=== PATIENT | male | born 1970 | race Caucasian/White ===

== ENCOUNTER → 2018-06-17 12:19 | Outpatient (CLI) | payer OTHER, SELFPAY ==
--- NOTE | 2018-06-17 12:22 | RAD_ITS ---
STUDY: X-RAY - RIGHT SHOULDER REASON FOR EXAM: Male, 47 years old. Painful shoulder. TECHNIQUE: 4 view(s) of the shoulder. COMPARISON: None. FINDINGS: Normal glenohumeral articulation. Normal acromioclavicular joint. Normal acromion. Normal humeral head and visualized proximal humerus. There is periarticular soft tissue calcification consistent with a calcific tendinitis. Normal visualized pulmonary apex. RAD/Shoulder min 2 Views IMPRESSION: Findings in keeping with calcific tendinitis. Electronically Signed: Deion Delcid MD at 9:02 EDT Tel [phone], Service support ,
== END ==
PROVIDERS: Family Provider Preventive Medicine Occupational Medicine; PCP Preventive Medicine Occupational Medicine; Referring Provider Physician Assistant; Visit Provider Physician Assistant
DX: S46.911A Strain of unspecified muscle, fascia and tendon at shoulder and upper arm level, right arm, initial encounter (principal)
CPT/HCPCS: 73030

== ENCOUNTER → 2018-06-23 06:30 | Outpatient (CLI) | payer OTHER, SELFPAY ==
--- NOTE | 2018-06-23 06:36 | MRI_ITS ---
STUDY: MRI RIGHT SHOULDER REASON FOR EXAM: Anterior pain and limited range of motion, injury 06/13/2018. TECHNIQUE: Standardized fat and water weighted pulse sequences were obtained in all 3 orthogonal planes. COMPARISON: Radiographs 06/17/2018. FINDINGS: There are signal voids with adjacent inflammation in the supraspinatus tendon (T2 coronal images 10, 16) consistent with calcific tendinitis. There is no discrete tear of the supraspinatus tendon. Normal infraspinatus tendon. Normal subscapularis tendon. Normal teres minor tendon. Normal supraspinatus muscle. Normal infraspinatus muscle. Normal subscapularis muscle. Normal teres minor muscle. Normal glenohumeral articulation. There is mild cystic change of the posterior aspect of the greater tuberosity. Normal biceps labral complex. Normal intracapsular long biceps tendon. Normal labrum. Normal capsulo- ligamentous complex. There is acromioclavicular arthrosis with capsular thickening effacing the subacromial fat (T2 sagittal image 16). There is a Type II morphology (curved), with a neutral orientation. There is a small volume of subacromial-subdeltoid bursal fluid. There is thickening of the coracoacromial ligament (T2 sagittal image 13). Normal deltoid muscle. Normal trapezius muscle. MRI/Upper Ext Joint Only(Routine) IMPRESSION: Supraspinatus calcific tendinitis. Acromioclavicular arthrosis. Thickening of the coracoacromial ligament. Mild subacromial-subdeltoid bursitis. No demonstrated rotator cuff tear. Electronically Signed: Trey Navarro MD at 8:33 EDT Tel , Service support ,
== END ==
PROVIDERS: Family Provider Preventive Medicine Occupational Medicine; PCP Preventive Medicine Occupational Medicine; Referring Provider Physician Assistant; Visit Provider Physician Assistant
DX: S46.911A Strain of unspecified muscle, fascia and tendon at shoulder and upper arm level, right arm, initial encounter (principal); S46.011A Strain of muscle(s) and tendon(s) of the rotator cuff of right shoulder, initial encounter
CPT/HCPCS: 73221

== ENCOUNTER 2018-07-06 16:00 | Outpatient (RCR) | payer OTHER, SELFPAY ==
--- NOTE | 2018-06-30 11:21 | HP.PTEVAL ---
Patient's Visit Information LINDA PLATT is a 47 year old M referred to Physical Therapy by HE Rubio with a diagnosis of Strain of Right rotator cuff. Date of Evaluation: 06/26/18 Physical Therapist: Glen Alvarez - Visit Plan Frequency: 3x /Week Duration: 4 Weeks Plan: Start with IFC + ice to reduce symptoms. Focus on PROM/AAROM of R shoulder including brooke and wand exercises. Progress to scapuar stability/strengthening exercises as pain reduces to get back to work related activities. - Subjective Subjective: Pt. is here today for his initial evaluation of his R shoulder. Pt. reports hurting his shoulder while at work on Jun 12. He was stepping down a step and slipped while attempting to catch his self with his arm. Pt. reports having instant pain. He reports his symptoms have improved since initial injury. 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 He reports he was not able to lift his arm right after, but now is able to lift it to about shoulder height. He is currently on light duty, but is able to complete most activities. He did have an MRI showing no tear of his RTC. He is sleeping better, but continues to have increased pain limiting over head activites, upper body dressing, work activities and all recreational activties. Pt. is hopeful to increase ROM and strength allowing for return to all work and recreational activities without limitations. - Pain R shoulder Pain Intensity (Out of 10): 3 Pain Intensity Range: 2, 6 - Objective POSTURE: Pt. has rounded shoulder, normal R UE positioning, normal cervical spine positoning. PALPATION: Pt. has increased tenderness along subacromial space, along bicipital groove. No UT or scapular pain. NEURO: normal senation, normal DTR of bilateral UEs, biceps and triceps. ROM: L shoulder- full ROM without increase in symptoms. R shoulder- AROM- flexion 92deg, abd 87deg, ext 50deg, functional ER C1 abherrant motion, functional IR L1 mild increase NW. PROM- flexion 165deg increase NW, abd 145deg increase NW, ER at 0deg of abd 40 increase NE, IR at 30deg of abd 50deg increase NW. MMT: LUE- wrist/elbow 5/5 throughout. shoulder- 5/5 throughout. RUE- wrist/elbow 5/5 throughout. Shoulder- flexion 4/5 increase NW, abd 4/5 increase NW, ER 4/5 increase NW, IR 4/5 increase NW, ext 5/5 NE. Medical Reception Specialist strength- 58# R, 66# L, R hand dominant. - Special Tests R Shoulder External Rotation Lag Test - RC Tear: Negative R Shoulder Drop Sign - IS Test: Negative R Shoulder Empty Can - SS: Positive R Shoulder Belly Press - SupScap: Negative R Shoulder Neer - Impingement: Positive R Shoulder Jordan Tom - Impingement: Positive R Shoulder Biceps Load Test - Labrum: Negative R Shoulder Speeds Test - Labrum/Biceps: Negative - Goals Goal 1:: Pt. to be I with HEP. Goal Time Frame: 4-6 Weeks Goal 2:: Pt. to have full PROM and AROM of R shoulder without increase in symptoms. Goal Time Frame: 4-6 Weeks Goal 3:: Pt. to have no pain at rest. Goal Time Frame: 4-6 Weeks Goal 4:: Pt. to sleep throughout the night without increase in symptoms. Goal Time Frame: 4-6 Weeks Goal 5:: Pt. to resume all work related activities without increase in symptoms. - Rehabilitation Potential Physical Therapy Diagnosis: Pt. has signs and symptoms consistent with a strain of his R RTC. Pt. has had an MRI showing no tearing or acute pathology. Pt. has limited ROM secondary to increase pain with rotational movements and with all over head movements. Pt. also presents with increased weakness, but secondary to increased pain. Pt. would benefit from PT to increase ROM, strength, and progress back to all work and recreational activities. Rehabilitation Potential: Excellent - Anticipated Interventions Patient/Client Instruction: Educate patient on: Condition, Plan of Care, Risk Factors, Benefits of Fitness Program For the Purpose of:: To improve health and function, To foster healthy habits, To improve decision making, To facilitate caregiver knowledge, To improve self management, To prevent re-injury, To improve ability to perform tasks related to life management, To improve tolerance to ADL's Therapeutic Exercise to Include: Strength training, Body mechanics, Postural training, Passive ROM, Active ROM, Kam Exercises, Scapular Strength/Stabilization For the Purpose of:: To decrease pain, To decrease swelling/inflammation, To increase ROM, To improve muscle performance and motor function, To decrease soft tissue restriction, To increase flexibility/ROM, To prevent re-injury Manual Therapy Techniques to Include: Mobilization, Soft tissue mobilization For the Purpose of:: To decrease pain, To increase ROM, To improve health of tissue, To decrease soft tissue restriction, To increase flexibility/ROM TENS: Yes IF ES: Yes Cryotherapy (ice pack, ice massage): Yes For the Purpose of:: To decrease pain, To decrease swelling/inflammation, To increase ROM, To improve nutrient delivery to tissue Thank you for the opportunity to evaluate your patient. For Medicare and Medicare HMO plans, please review the plan of care and approve it. It will need to be FAXED BACK to us at [phone] for Medicare purposes. Please let me know if there are questions or concerns regarding this plan of care. Physician Signature: Date:
--- NOTE | 2018-12-04 10:01 | HP.PT.NRP ---
HP - Discharge Summary (1) - Patient Information LINDA PLATT was seen in my office for initial evaluation on 06/26/18. The following Plan of Care was established for this patient: Initial Frequency: 3x /Week Initial Duration: 4 Weeks - Anticipated Interventions Patient/Client Instruction: Educate patient on: Condition, Plan of Care, Risk Factors, Benefits of Fitness Program For the Purpose of:: To improve health and function, To foster healthy habits, To improve decision making, To facilitate caregiver knowledge, To improve self management, To prevent re-injury, To improve ability to perform tasks related to life management, To improve tolerance to ADL's Therapeutic Exercise to Include: Strength training, Body mechanics, Postural training, Passive ROM, Active ROM, Kam Exercises, Scapular Strength/Stabilization For the Purpose of:: To decrease pain, To decrease swelling/inflammation, To increase ROM, To improve muscle performance and motor function, To decrease soft tissue restriction, To increase flexibility/ROM, To prevent re-injury Manual Therapy Techniques to Include: Mobilization, Soft tissue mobilization For the Purpose of:: To decrease pain, To increase ROM, To improve health of tissue, To decrease soft tissue restriction, To increase flexibility/ROM TENS: Yes IF ES: Yes Cryotherapy (ice pack, ice massage): Yes For the Purpose of:: To decrease pain, To decrease swelling/inflammation, To increase ROM, To improve nutrient delivery to tissue This patient was last seen in our office 07/06/18. Pertinent comments regarding their Physical therapy will appear below: Pt. was treated for his rotator cuff strain. Pt. did very well with shoulder stabilityu and strengthening exercises. Pt. was to follow up with physician then with PT if needed. Pt. has not been seen in several months and will be DC from PT at this point in time. At this point I will be discontinuing this patient from physical therapy. I would be happy to see this patient again in the future if found appropriate by the physician. Thank you! Glen Alvarez, MATHEUS
== END 2018-07-06 19:00 | disposition home or self-care (01) ==
LOC: PT 16:00
PROVIDERS: Family Provider Preventive Medicine Occupational Medicine; PCP Preventive Medicine Occupational Medicine; Referring Provider Physician Assistant; Visit Provider Physician Assistant
DX: S46.911D Strain of unspecified muscle, fascia and tendon at shoulder and upper arm level, right arm, subsequent encounter (principal); S46.011D Strain of muscle(s) and tendon(s) of the rotator cuff of right shoulder, subsequent encounter
CPT/HCPCS: 97014; 97110; 97161; G0283

== ENCOUNTER → 2019-09-28 15:41 | Outpatient (CLI) | payer OTHER, SELFPAY ==
[2019-09-28 14:28] VITALS: BMI 31.9
--- NOTE | 2019-09-28 15:44 | RAD_ITS ---
STUDY: X-RAY - LEFT SHOULDER REASON FOR EXAM: Male, 49 years old. left shoulder pain TECHNIQUE: 4 view(s) of the shoulder. COMPARISON: None. FINDINGS: Normal glenohumeral articulation. 3.0 x 2.2 cm well-circumscribed lobulated lucent lesion within the inferior glenoid. Normal acromioclavicular joint. Normal acromion. Normal humeral head and visualized proximal humerus. The soft tissue structures are unremarkable. Normal visualized pulmonary apex. RAD/Shoulder min 2 Views IMPRESSION: Nonaggressive osseous lesion within the inferior glenoid. Correlate with CT. Electronically Signed: Carlos Mo MD at 1:33 EST , Service support ,
== END ==
PROVIDERS: PCP Internal Medicine; Referring Provider Internal Medicine; Visit Provider Internal Medicine
DX: M25.512 Pain in left shoulder (principal)
CPT/HCPCS: 73030

== ENCOUNTER → 2019-10-04 13:20 | Outpatient (CLI) | payer OTHER, SELFPAY ==
[2019-09-28 14:28] VITALS: BMI 31.9
--- NOTE | 2019-10-04 13:21 | MRI_ITS ---
STUDY: MRI LEFT SHOULDER REASON FOR EXAM: Left shoulder pain, abnormal radiograph. TECHNIQUE: Standardized fat and water weighted pulse sequences were obtained in all 3 orthogonal planes. COMPARISON: Radiographs 09/28/2019. FINDINGS: Normal supraspinatus tendon. Normal infraspinatus tendon. Normal subscapularis tendon. Normal teres minor tendon. Normal supraspinatus muscle. Normal infraspinatus muscle. Normal subscapularis muscle. Normal teres minor muscle. There is a well-defined septated cyst in the glenoid extending to the subchondral surface (fat suppressed T2 coronal images 6-9; T2 sagittal images 3-8; T2 axial images 12-14) measuring 1.7 x 2.3 x 2.3 cm (AP x mediolateral x length). The lesion is not expansile and there is no adjacent bone edema. Normal humeral head and visualized proximal humerus. Normal biceps labral complex. Normal intracapsular long biceps tendon. Normal labrum. Normal capsulo- ligamentous complex. There is no substantial acromioclavicular arthrosis. There is a Type II morphology (curved), with a neutral orientation. There is no subacromial-subdeltoid bursal fluid. Normal visualized coracohumeral and coracoacromial ligaments. Normal deltoid muscle. Normal trapezius muscle. MRI/Upper Ext Joint Only(Routine) IMPRESSION: Nonaggressive cystic lesion in the glenoid, differential considerations include an intraosseous ganglion cyst, simple bone cyst. Electronically Signed: Trey Navarro MD at 14:35 EST Tel , Service support ,
== END ==
PROVIDERS: PCP Internal Medicine; Referring Provider Internal Medicine; Visit Provider Internal Medicine
DX: M25.512 Pain in left shoulder (principal); R93.6 Abnormal findings on diagnostic imaging of limbs
CPT/HCPCS: 73221

== ENCOUNTER → 2021-07-11 13:27 | Outpatient (CLI) | payer OTHER, SELFPAY ==
[2021-07-11 15:38] LABS: Thyroid Stim Hormone (TSH) 3.39 uIU/mL (0.358-3.74)
== END ==
PROVIDERS: PCP Internal Medicine; Referring Provider Internal Medicine; Visit Provider Internal Medicine
DX: E03.9 Hypothyroidism, unspecified (principal)
CPT/HCPCS: 36415; 84443

== ENCOUNTER 2021-10-12 09:33 | Day surgery (SDC) | payer OTHER, SELFPAY ==
[2021-10-12] MEDS: Lactated Ringers 1,000 ML 15 ML IV (10:00)
[2021-10-12 10:01] VITALS: BP 123/77; PULSE 70; RESP 18; TEMP 36.3; O2SAT 97; BMI 31.3
--- NOTE | 2021-10-12 11:02 | H&P.OPEN ---
HPI - General HPI Narrative LINDA PLATT, is a 51 M who presents for screening colonoscopy secondary to age. They are referred for surgical consultation from Dr. Hawkins. Patient has not had prior colonoscopy. Patient has no personal history of inflammatory bowel disease, diverticulitis, or colon cancer. They describe their bowel habits as normal and regularly occurring once daily without straining. They deny noting any blood or smaller caliber to their stools. They do not regularly take fiber supplements. Patient has no family history of inflammatory bowel disease, diverticulitis, or colon cancer. Patient states that he successfully completed the requested prep. He confirms that his output has been clear and without solid material. [facility] Medical History (Updated 09/25/21 @ 09:22 by Sylvia Calderón) Alcohol use Arthritis Back problem Bone fracture Chewing tobacco use Colon cancer screening COVID-19 Gastric reflux Generalized headaches GERD (gastroesophageal reflux disease) H/O tinnitus Arleth's disease Health care maintenance Hearing problem High cholesterol History of echocardiogram Hypertension Kidney stone Lab test negative for COVID-19 virus Migraine headache Restless legs Shoulder pain Thyroid disease Home Medications atorvastatin 20 mg tablet 20 mg PO DAILY 90 Days #90 tab 07/11/21 [Rx Last Taken Unknown] levothyroxine 150 mcg tablet 150 mcg PO DAILY 90 Days #90 tab 07/11/21 [Rx Last Taken Unknown] omeprazole 20 mg tablet,delayed release 20 mg PO DAILY 90 Days #84 tab 07/11/21 [Rx Last Taken Unknown] amlodipine 5 mg PO DAILY 09/25/21 [History Last Taken Unknown] Allergy/AdvReac Type Severity Reaction Status Date / Time Sulfa (Sulfonamide AdvReac Mild Rash Verified 09/25/21 09:12 Antibiotics) Family History Grandfather Alcoholism Angina at rest Grandmother Breast cancer Father High cholesterol Thyroid disorder Myocardial infarction Surgical History History of appendectomy Social History Smoking Status: Current every day smoker tobacco type: smokeless tobacco Tobacco: How many years used: 20 Smokeless tobacco user: chewing tobacco alcohol intake: current alcohol intake frequency: holidays/special occasions only substance use type: does not use what type of physical activity do you participate in: walking frequency: 1-2 times per week duration: 30-45 minutes/day Past Medical/Surgical History Planned Operation Planned Operative Procedure/s: CSCOPE OA Previous Hospitalizations/Surgeries HX Hospitalizations: No Any Problems With Anesthesia: No You/Your Family Experience Fever (Hyperthermia) With Anes: No Cholinesterase deficiency: No Cardiovascular Hx Hypertension: Yes (CONTROLLED WITH MED) Respiratory Hx Sleep Apnea: No Hx Respiratory Tract Infection/Cold (presently): No Do You Snore Loudly (louder than talking or can be heard): Yes Do You Often Feel Tired/ Fatigued/ Sleepy Dring Daytime?: No Has Anyone Observed You Stop Breathing During Sleep?: No Result (for STOP score): Positive Smoking Status: Current every day smoker Neurological Does patient have nerve stimulator: No Reproduction : No Miscellaneous Recent Exposure to Contagious Disease: No Allergies Sulfa (Sulfonamide Antibiotics) Adverse Reaction (Mild, Verified 09/25/21 09:12) Rash Discharge Is Pt Admitted From a Senior Care, or a Longterm: No After D/C, Where Do you Plan to Go: Return Home Vital Signs Vital Signs Vital Signs: 10/12/21 10:01 Temperature 97.4 F L Temperature Source Temporal Pulse Rate 70 Respiratory Rate 18 Respiratory Pattern Normal Blood Pressure 123/77 H Blood Pressure Mean 92 Blood Pressure Source Monitor Blood Pressure Position Sitting Blood Pressure Location Right Arm Pulse Ox 97 Oxygen Delivery Method Room Air Weight Weight: 218 lb 4.122 oz Body Mass Index (BMI) 31.3 Physical Exam GI GI Narrative: Nondistended, soft, no scars. Evidence of umbilical hernia on inspection. With palpation there is evidence of incarcerated fat. This is mildly tender to palpation. Otherwise patient denies any tenderness in the 4 abdominal quadrants. Surgery Risks - Colonoscopy Risks Include but are not Limited To: Risks include but are not limited to: Bleeding, perforation requiring further surgery, inability to complete colonoscopy requiring barium enema. Assessment & Plan Assessment & Plan (1) Colon cancer screening: Plan: This is a 51-year-old male who presents for screening colonoscopy. He provides no history to indicate anything more than an average risk for colon cancer. He confirms successful bowel prep. He denies any questions related to the procedure. Proceed for screening colonoscopy under local MAC as planned. (2) Health care maintenance: Plan: Screening colonoscopy under local [facility] as above
[2021-10-12 12:22] VITALS: BP 119/79; BP 123/77; PULSE 66; RESP 18; TEMP 36.2; O2SAT 97
--- NOTE | 2021-10-12 12:24 | OP.COLON_ITS ---
Patient Name: Roman Betts Procedure Date: 10/12/2021 11:02 AM Date of : 1970 Age: 51 Procedure: Colonoscopy Indications: Screening for colorectal malignant neoplasm Providers: Xu Blair MD Referring MD: Paul Hawkins MD Medicines: See the Anesthesia note for documentation of the administered medications Patient Profile: This is a 51 year old male. Refer to note in patient chart for documentation of history and physical. Last Colonoscopy: none. The patient's first colonoscopy is today. Complications: No immediate complications. Estimated blood loss: None. Procedure: Pre-Anesthesia Assessment: - The heart rate, respiratory rate, oxygen saturations, blood pressure, adequacy of pulmonary ventilation, and response to care were monitored throughout the procedure. After I obtained informed consent, the scope was passed under direct vision. Throughout the procedure, the patient's blood pressure, pulse, and oxygen saturations were monitored continuously. The adult colonoscope was introduced through the anus and advanced to the ileocecal valve. The colonoscopy was performed with moderate difficulty due to poor bowel prep. Successful completion of the procedure was aided by lavage. The patient tolerated the procedure well. The quality of the bowel preparation was poor. Scope In: 11:13:26 AM Scope Withdrawal Time 0 hours 41 minutes 50 seconds Scope Out: 12:15:06 PM Total Procedure Duration Time 1 hour 1 minute 40 seconds Findings: A single small-mouthed diverticulum was found in the transverse colon. There was no evidence of diverticular bleeding. No biopsies or other specimens were collected for this exam. The exam was otherwise without abnormality on direct and retroflexion views. Impression: - Preparation of the colon was poor. - Diverticulosis in the transverse colon. There was no evidence of diverticular bleeding. No specimens collected. - The examination was otherwise normal on direct and retroflexion views. Recommendation: - Discharge patient to home (via wheelchair). - Resume regular diet today. - Continue present medications. - Repeat colonoscopy in 5 years for screening purposes. Procedure Code(s): --- Professional --- 53705, Colonoscopy, flexible; diagnostic, including collection of specimen(s) by brushing or washing, when performed (separate procedure) Diagnosis Code(s): --- Professional --- Z12.11, Encounter for screening for malignant neoplasm of colon K57.30, Diverticulosis of large intestine without perforation or abscess without bleeding CPT copyright 2017 [employer]. All rights reserved. The codes documented in this report are preliminary and upon hopper feeder review may be revised to meet current compliance requirements. Xu Blair MD 10/12/2021 12:24:27 PM This report has been signed electronically. Number of Addenda: 0 Note Initiated On: 10/12/2021 11:02 AM
--- NOTE | 2021-10-12 12:25 | OP.CCLET_ITS ---
10/12/2021 Paul Hawkins MD [address] [place] [address] [place] [address] Re : Colonoscopy procedure for Roman Betts Dear Dr. Hawkins This procedure was performed on Tuesday, October 12, 2021. My impressions and recommendations are as follows: Impressions : - Preparation of the colon was poor. - Diverticulosis in the transverse colon. There was no evidence of diverticular bleeding. No specimens collected. - The examination was otherwise normal on direct and retroflexion views. Recommendations : - Discharge patient to home (via wheelchair). - Resume regular diet today. - Continue present medications. - Repeat colonoscopy in 5 years for screening purposes. My findings are described in the full procedure note, which is enclosed. If I can be of further assistance, please feel free to contact me at Doctor phone number(s): , Work: . Sincerely, Xu Blair MD 10/12/2021 12:24:27 PM This report has been signed electronically.
[2021-10-12 12:28] VITALS: BP 108/56; BP 123/77; PULSE 62; RESP 18; O2SAT 97
[2021-10-12 12:30] VITALS: BP 123/77; BP 94/67; PULSE 72; RESP 18; O2SAT 99
[2021-10-12 12:36] VITALS: BP 113/80; BP 123/77; PULSE 64; RESP 20; TEMP 36.2; O2SAT 98
[2021-10-12 12:58] VITALS: BP 123/77
== END 2021-10-12 23:59 | disposition home or self-care (01) ==
LOC: EN 09:38 → AC 09:38
PROVIDERS: PCP Internal Medicine; Referring Provider Internal Medicine; Visit Provider Surgery
PROC: 0DJD8ZZ Inspection of Lower Intestinal Tract, Via Natural or Artificial Opening Endoscopic (ICD-10-PCS; CPT 45378; principal; 2021-10-12 10:55)
DX: Z12.11 Encounter for screening for malignant neoplasm of colon (principal); K57.30 Diverticulosis of large intestine without perforation or abscess without bleeding; F17.220 Nicotine dependence, chewing tobacco, uncomplicated; I10 Essential (primary) hypertension; E78.00 Pure hypercholesterolemia, unspecified; M19.90 Unspecified osteoarthritis, unspecified site; Z86.16 Personal history of COVID-19; K21.9 Gastro-esophageal reflux disease without esophagitis; E06.3 Autoimmune thyroiditis; G25.81 Restless legs syndrome; Z87.442 Personal history of urinary calculi; Z79.899 Other long term (current) drug therapy
CPT/HCPCS: 45378; J7120; J2405

== ENCOUNTER → 2022-04-12 | Outpatient (CLI) | payer OTHER, SELFPAY ==
[2022-04-12 16:23] LABS: Absolute Lymphocyte Count 2.01 X10^3/uL (0.83-4.51); Absolute Neutrophil Count 4.3 X10^3/uL (2.0-7.7); Basophil# 0.04 X10^3/uL; Basophil% 0.6 % (0-1); Eosinophil# 0.15 X10^3/uL; Eosinophils% 2.1 % (0-5); Hematocrit 44.5 % (40-54); Hemoglobin 14.8 g/dL (13.0-16.5); Lymphocyte # 2.01 X10^3/ul (0.83-4.51); Lymphocyte % 28.1 % (19-41); Mean Corp Hgb Conc 33.3 g/dL (32-36); Mean Corpuscular Hgb 30.8 pg (27.0-32.0); Mean Corpuscular Volume 92.5 fL (80-94); Mean Platelet Vol. 10.7 fl (6.2-12.0); Monocyte# 0.62 X10^3/uL; Monocyte% 8.7 % (0-10); NRBC Flagged by Analyzer 0 % (0-5); Neutrophil # 4.31 X10^3/uL (2.7-7.7); Neutrophil % 60.1 % (47-70); Platelet Count 241 K/mm3 (150-450); RBC Distribution Width CV 12.2 % (11.6-14.6); RBC Distribution Width SD 41.4 fl (35.1-43.9); Red Blood Count 4.81 M/mm3 (4.6-6.2); White Blood Count 7.2 K/mm3 (4.4-11.0)
[2022-04-12 16:57] LABS: ALB/GLOB Ratio 1.3 RATIO (0.9-2.4); AST(SGOT) 23 U/L (15-37); Alanine Aminotransfer ALT/SGPT 49 U/L (16-61); Albumin, Serum 4.3 g/dL (3.2-5.0); Alkaline Phosphatase 48 U/L (45-117); Anion Gap 7 (5-15); BUN 18 mg/dL (7-18); BUN/Creat Ratio 12.7 RATIO (10-20); Chloride 109 mmol/L (98-107); Cholesterol 160 mg/dL (200); Creatinine, Serum 1.42 mg/dL (0.70-1.30); EST Glomerular Filtration Rate 56 mL/min (>60); Est Glom Filt Rate - Afr Amer 68 mL/min (>60); Globulin 3.4 g/dL (2.2-4.2); Glucose 102 mg/dL (74-106); High Density Lipoprotein 51 mg/dL; Potassium 3.9 mmol/L (3.5-5.1); Protein, Total 7.7 g/dL (6.4-8.2); Sodium Level 141 mmol/L (136-145); Thyroid Stim Hormone (TSH) 3.88 uIU/mL (0.358-3.74); Triglycerides 114 mg/dL; Very Low Density Lipoprotein 23 mg/dL (5-40)
== END | disposition home or self-care (01) ==
LOC: BIMLAB 15:08
PROVIDERS: PCP Internal Medicine; Referring Provider Internal Medicine; Visit Provider Internal Medicine
DX: I10 Essential (primary) hypertension (principal); E03.9 Hypothyroidism, unspecified; E78.5 Hyperlipidemia, unspecified
CPT/HCPCS: 36415; 80053; 80061; 84443; 85025

== ENCOUNTER → 2023-09-12 | Outpatient (CLI) | payer OTHER, SELFPAY ==
--- OUTSIDE RECORDS SUMMARY | 2023-09-12 15:21 | XMS RPT_ITS | CCD ---
Author Name Unknown Address [address] [place] [address] Organization [facility] Care Team Providers Care Regional Maintenance Manager Name Role Phone REFERRING, PHY WO ID Unavailable Unavailable NAPOLEON MAHAN Unavailable Unavailable TRACIE HORVATH Unavailable Unavailable Ani Walters Unavailable TRACIE HORVATH Unavailable Unavailable Problems Active Problems Problem Classification Problem Date Documented Da te Episodic/Chronic Unclassified (1 source) Unknown / UNK(Unknown) Onset: 03-01-2017 Past or Other Problems Problem Classification Problem Date Documented Da te Episodic/Chronic Unclassified (1 source) E03.9, E78.5, Onset: 03-01-2017 Results Test Name Value Interpretation Reference Range Facil ity Encounters Encounter Date Encounter Type Care Provider Facility Start: 06-15-2018 End: 06-16-2018 Patient encounter Ani Walters Facility:[facility] Start: 03-01-2017 End: 03-02-2017 Ambulatory PHY WO ID REFERRING Facility[facility] [place] Payers Date Payer Category Payer Private Health Insurance [id number] 1970 Unknown [id number] Summary Purpose Family History No Family History Records FoundNo Family History Records FoundNo Family History Records Found Advance Directives No Advanced Directives Records FoundNo Advanced Directives Records FoundNo Advanced Directives Records Found Additional Source Comments (unrecognized sect ion and content) No Status Records FoundNo Status Records FoundNo Status Records Found INFORMATION SOURCE (unrecogn ized section and content) DATE CREATED AUTHOR AUTHOR'S ORGANIZ ATION 07/18/2018 [facility] ([place]) DATE CREATED AUTHOR AUTHOR'S ORGANIZ ATION 11/08/2019 [facility] FOR RECORDS PERTAINING TO PATIENTS WHO ARE OR HAVE BEEN ENROLLED IN A CHEMICAL DEPENDENCY/SUBSTANCEABUSE PROGRAM, SOME INFORMATION MAY BE OMITTED. This clinical summary was aggregated from multiple sources. Caution should be exercised in using it in the provision of clinical care. This summary normalizes information from multiple sources, and as a consequence, information in this document may materially change the coding, format and clinical context of patient data. In addition, data may be omitted in some cases. CLINICAL DECISIONS SHOULD BE BASED ON THE PRIMARY CLINICAL RECORDS. [facility] [email or web address] provides no warranty or guarantee of the accuracy or completeness of information in this document.
[2023-09-12 15:36] LABS: Absolute Lymphocyte Count 1.68 X10^3/uL (0.83-4.51); Absolute Neutrophil Count 5.3 X10^3/uL (2.0-7.7); Basophil# 0.06 X10^3/uL; Basophil% 0.8 % (0-1); Eosinophil# 0.08 X10^3/uL; Hematocrit 46.7 % (40-54); Hemoglobin 15.2 g/dL (13.0-16.5); Lymphocyte # 1.68 X10^3/ul (0.83-4.51); Lymphocyte % 21.6 % (19-41); Mean Corp Hgb Conc 32.5 g/dL (32-36); Mean Corpuscular Hgb 30.1 pg (27.0-32.0); Mean Corpuscular Volume 92.5 fL (80-94); Mean Platelet Vol. 10.5 fl (6.2-12.0); Monocyte# 0.59 X10^3/uL; Monocyte% 7.6 % (0-10); NRBC Flagged by Analyzer 0 % (0-5); Neutrophil # 5.33 X10^3/uL (2.7-7.7); Neutrophil % 68.7 % (47-70); Platelet Count 261 K/mm3 (150-450); RBC Distribution Width CV 11.9 % (11.6-14.6); RBC Distribution Width SD 40.6 fl (35.1-43.9); Red Blood Count 5.05 M/mm3 (4.6-6.2); White Blood Count 7.8 K/mm3 (4.4-11.0)
[2023-09-12 16:06] LABS: ALB/GLOB Ratio 1.3 RATIO (0.9-2.4); AST(SGOT) 26 U/L (15-37); Alanine Aminotransfer ALT/SGPT 51 U/L (16-61); Albumin, Serum 4.5 g/dL (3.2-5.0); Alkaline Phosphatase 60 U/L (45-117); Amylase 39 U/L (25-115); Anion Gap 7 (5-15); BUN 16 mg/dL (7-18); BUN/Creat Ratio 14.2 RATIO (10-20); Calcium,Total 9.4 mg/dL (8.5-10.1); Chloride 106 mmol/L (98-107); Cholesterol 144 mg/dL (200); Creatinine, Serum 1.13 mg/dL (0.70-1.30); EST Glomerular Filtration Rate 72 mL/min (>60); Est Glom Filt Rate - Afr Amer 88 mL/min (>60); Globulin 3.5 g/dL (2.2-4.2); Glucose 102 mg/dL (74-106); High Density Lipoprotein 48 mg/dL; Lipase 28 U/L (13-75); Potassium 4.1 mmol/L (3.5-5.1); Sodium Level 139 mmol/L (136-145); Thyroid Stim Hormone (TSH) 0.49 uIU/mL (0.358-3.74); Triglycerides 69 mg/dL; Very Low Density Lipoprotein 14 mg/dL (5-40)
== END | disposition home or self-care (01) ==
LOC: BIMLAB 14:03
PROVIDERS: PCP Internal Medicine; Referring Provider Internal Medicine; Visit Provider Internal Medicine
DX: J06.9 Acute upper respiratory infection, unspecified (principal); E03.9 Hypothyroidism, unspecified; R10.9 Unspecified abdominal pain
CPT/HCPCS: 80053; 80061; 82150; 83690; 84443; 85025; 87635

== ENCOUNTER → 2023-09-16 | Outpatient (CLI) | payer OTHER, SELFPAY ==
--- NOTE | 2023-09-16 09:10 | US_ITS ---
STUDY: ABDOMINAL ULTRASOUND - RIGHT UPPER QUADRANT REASON FOR VISIT: Male, 53 years old RUQ Pain TECHNIQUE: Ultrasound evaluation of the right upper quadrant was performed with real-time and static nieves-scale imaging. TECHNICAL QUALITY: Adequate. COMPARISON: None. FINDINGS: Liver: The liver is enlarged and measures 20.7 cm. There is increased echogenicity consistent with fatty infiltration. The bile ducts are within normal limits. There is hepatic color flow. The direction of portal flow is hepatopetal. There is no demonstrated mass lesion. Gallbladder: Normal distended gallbladder. The gallbladder wall measures 2.0 mm. There is a negative sonographic Ortiz''s sign. There is no pericholecystic fluid. There are no gallstones. Common Bile Duct (C.B.D.): The common bile duct measures 4 mm. Pancreas: There is nonvisualization of the pancreas due to overlying bowel gas. Right Kidney: Normal size of the right kidney. The right kidney measures 11.7 cm x 6.4 cm x 5.3 cm. Normal renal cortex. The right cortex measures 1.3 cm. There is no demonstrated renal mass or cyst. There is no right hydronephrosis. US/Abdomen Limited IMPRESSION: Hepatomegaly and fatty infiltration of the liver. Electronically Signed: Deion Delcid MD at 10:02 [facility] ,
== END | disposition home or self-care (01) ==
PROVIDERS: PCP Internal Medicine; Referring Provider Internal Medicine; Visit Provider Internal Medicine
DX: R10.9 Unspecified abdominal pain (principal)
CPT/HCPCS: 76705

== ENCOUNTER → 2024-03-12 | Outpatient (CLI) | payer OTHER, SELFPAY ==
[2024-03-12 17:23] LABS: ALB/GLOB Ratio 1.3 RATIO (0.9-2.4); AST(SGOT) 17 U/L (15-37); Alanine Aminotransfer ALT/SGPT 40 U/L (16-61); Albumin, Serum 4.3 g/dL (3.2-5.0); Alkaline Phosphatase 53 U/L (45-117); Anion Gap 7 (5-15); BUN 14 mg/dL (7-18); BUN/Creat Ratio 12.4 RATIO (10-20); Calcium,Total 9.5 mg/dL (8.5-10.1); Chloride 106 mmol/L (98-107); Creatinine, Serum 1.13 mg/dL (0.70-1.30); EST Glomerular Filtration Rate 72 mL/min (>60); Est Glom Filt Rate - Afr Amer 87 mL/min (>60); Globulin 3.4 g/dL (2.2-4.2); Glucose 101 mg/dL (74-106); Potassium 3.9 mmol/L (3.5-5.1); Protein, Total 7.7 g/dL (6.4-8.2); Sodium Level 138 mmol/L (136-145); Thyroid Stim Hormone (TSH) 1.39 uIU/mL (0.358-3.74)
== END | disposition home or self-care (01) ==
LOC: BIMLAB 15:34
PROVIDERS: PCP Internal Medicine; Referring Provider Internal Medicine; Visit Provider Internal Medicine
DX: E03.9 Hypothyroidism, unspecified (principal); I10 Essential (primary) hypertension
CPT/HCPCS: 36415; 80053; 84443

== ENCOUNTER → 2024-09-08 | Outpatient (CLI) | payer OTHER, SELFPAY ==
[2024-09-08 16:42] LABS: Absolute Lymphocyte Count 2.38 X10^3/uL (0.83-4.51); Absolute Neutrophil Count 6.3 X10^3/uL (2.0-7.7); Basophil# 0.07 X10^3/uL; Basophil% 0.7 % (0-1); Eosinophil# 0.09 X10^3/uL; Eosinophils% 0.9 % (0-5); Hemoglobin 14.7 g/dL (13.0-16.5); Lymphocyte # 2.38 X10^3/ul (0.83-4.51); Mean Corpuscular Hgb 30.5 pg (27.0-32.0); Mean Corpuscular Volume 87.1 fL (80-94); Mean Platelet Vol. 10.6 fl (6.2-12.0); Monocyte# 0.63 X10^3/uL; Monocyte% 6.6 % (0-10); NRBC Flagged by Analyzer 0 % (0-5); Neutrophil # 6.32 X10^3/uL (2.7-7.7); Neutrophil % 66.5 % (47-70); Platelet Count 253 K/mm3 (150-450); RBC Distribution Width CV 12.3 % (11.6-14.6); RBC Distribution Width SD 39.3 fl (35.1-43.9); Red Blood Count 4.82 M/mm3 (4.6-6.2); White Blood Count 9.5 K/mm3 (4.4-11.0)
[2024-09-08 17:52] LABS: ALB/GLOB Ratio 1.4 RATIO (0.9-2.4); AST(SGOT) 27 U/L (15-37); Alanine Aminotransfer ALT/SGPT 54 U/L (16-61); Albumin, Serum 4.4 g/dL (3.2-5.0); Alkaline Phosphatase 59 U/L (45-117); Anion Gap 9 (5-15); BUN 13 mg/dL (7-18); BUN/Creat Ratio 11.7 RATIO (10-20); Chloride 104 mmol/L (98-107); Cholesterol 149 mg/dL (200); Creatinine, Serum 1.11 mg/dL (0.70-1.30); EST Glomerular Filtration Rate 74 mL/min (>60); Est Glom Filt Rate - Afr Amer 89 mL/min (>60); Globulin 3.2 g/dL (2.2-4.2); Glucose 98 mg/dL (74-106); High Density Lipoprotein 54 mg/dL; PSA,Total - Annual Screen 0.57 ng/mL (0.00-4.00); Potassium 3.3 mmol/L (3.5-5.1); Protein, Total 7.6 g/dL (6.4-8.2); Sodium Level 136 mmol/L (136-145); Triglycerides 77 mg/dL; Very Low Density Lipoprotein 15 mg/dL (5-40)
== END | disposition home or self-care (01) ==
LOC: BIMLAB 14:52
PROVIDERS: PCP Internal Medicine; Referring Provider Internal Medicine; Visit Provider Internal Medicine
DX: Z00.00 Encounter for general adult medical examination without abnormal findings (principal); E03.9 Hypothyroidism, unspecified
CPT/HCPCS: 36415; 80053; 80061; 84153; 84443; 85025; G0103

== ENCOUNTER → 2024-10-11 | Outpatient (CLI) | payer OTHER, SELFPAY ==
[2024-10-11 14:42] LABS: Anion Gap 9 (5-15); BUN 18 mg/dL (7-18); BUN/Creat Ratio 16.1 RATIO (10-20); Calcium,Total 9.1 mg/dL (8.5-10.1); Chloride 105 mmol/L (98-107); Creatinine, Serum 1.12 mg/dL (0.70-1.30); EST Glomerular Filtration Rate 73 mL/min (>60); Est Glom Filt Rate - Afr Amer 88 mL/min (>60); Glucose 154 mg/dL (74-106); Potassium 4.2 mmol/L (3.5-5.1); Sodium Level 140 mmol/L (136-145)
== END | disposition home or self-care (01) ==
LOC: BIMLAB 09:13
PROVIDERS: PCP Internal Medicine; Referring Provider Internal Medicine; Visit Provider Internal Medicine
DX: I10 Essential (primary) hypertension (principal)
CPT/HCPCS: 36415; 80048

== ENCOUNTER → 2025-03-09 | Outpatient (CLI) | payer OTHER, SELFPAY ==
[2025-03-09 17:35] LABS: Anion Gap 11 (5-15); BUN 16 mg/dL (4-19); BUN/Creat Ratio 15.4 RATIO (10-20); Calcium,Total 9.3 mg/dL (7.6-11.0); Carbon Dioxide 23.9 mmol/L (21.0-32.0); Chloride 103 mmol/L (98-108); Glucose 100 mg/dL (70-99); Potassium 3.9 mmol/L (3.3-5.1)
== END | disposition home or self-care (01) ==
LOC: BIMLAB 15:41
PROVIDERS: PCP Internal Medicine; Referring Provider Internal Medicine; Visit Provider Internal Medicine
DX: I10 Essential (primary) hypertension (principal); E03.9 Hypothyroidism, unspecified
CPT/HCPCS: 36415; 80048; 84443

== ENCOUNTER → 2025-05-26 | Outpatient (CLI) | payer OTHER, SELFPAY ==
--- NOTE | 2025-05-26 16:04 | US_ITS ---
PROCEDURE: TESTICULAR WITH ARTERIAL FLOW 05/26/2025 REASON FOR EXAM: RIGHT TESTICULAR PAIN TECHNIQUE: Procedure Code: USTES Modality: US Procedure: TESTICULAR WITH ARTERIAL FLOW FINDINGS: Right testicle measures 4.5 x 3.4 x 2.8 cm Right testicular echotexture is homogeneous Right testicular arterial and venous vascularity are within normal limits Right epididymal head measures 1.2 x 1.0 x 1.1 cm, normal in size Right epididymal cyst measuring 1.0 x 0.7 x 0.3 cm is present No hydrocele is seen on the right Right varicocele is demonstrated with Valsalva maneuver, maximal diameter 3 mm Left testicle measures 4.1 x 3.7 x 2.0 cm Left testicular echotexture is homogeneous Left testicular arterial and venous vascularity are within normal limits Left epididymal head measures 1.6 x 1.2 x 0.6 cm, normal in size No left epididymal cyst is identified No hydrocele is seen on the left No varicocele demonstrated on the left US/Testicular with Arterial Flow IMPRESSION: Normal size and homogeneous echotexture of both testes with preserved vasculari ty Right epididymal cyst measuring up to 1.0 cm Right varicocele with maximal diameter 3 mm No hydrocele identified Reading Location: [id number]
== END | disposition home or self-care (01) ==
LOC: US 16:02
PROVIDERS: PCP Internal Medicine; Referring Provider Nurse Practitioner Family; Visit Provider Nurse Practitioner Family
DX: N50.811 Right testicular pain (principal)
CPT/HCPCS: 76870; 93976

== ENCOUNTER → 2025-06-10 | Outpatient (CLI) | payer OTHER, SELFPAY | END | disposition home or self-care (01) | LOC: CT 16:11 | PROVIDERS: PCP Internal Medicine; Referring Provider Internal Medicine; Visit Provider Internal Medicine | DX: R10.31 Right lower quadrant pain (principal) | CPT/HCPCS: 74177; Q9967 ==

== ENCOUNTER 2025-07-22 08:54 | Day surgery (SDC) | payer OTHER, SELFPAY ==
--- NOTE | 2025-07-19 14:04 | EKG12_ITS ---
Test Reason : PREOP Blood Pressure : */* mmHG Vent. Rate : 85 BPM Atrial Rate : 85 BPM P-R Int : 150 ms QRS Dur : 90 ms QT Int : 384 ms P-R-T Axes : 33 32 18 degrees QTcB Int : 456 ms Normal sinus rhythm Minimal voltage criteria for LVH, may be normal variant Borderline ECG Confirmed by MICH LARA, MARILEE ([id number]), assignment editor JUDIE JOHNSON ([id number]) on 07/20/2025 6:26:24 AM Referred By: Xu Blair Confirmed By: MARILEE EPPS MD
--- NOTE | 2025-07-20 14:56 | PAT.ANE_ITS ---
Pre-Assessment Diagnosis/Proposed Procedure Planned Operative Procedure(s): hernia repair with mesh Anesthesia History Anesthesia History - pre billing clinician: Anesthesia History - pre billing clinician Hx Hospitalization No 07/15/25 11:29 Any Problems With Anesthesia No 07/15/25 11:29 Cholinesterase deficiency No 07/15/25 11:29 You/Your Family Experience No 07/15/25 11:29 fever (hyperthermia) with Relationship Recent Exposure to Contagious No 08/02/24 15:35 Disease Does patient have nerve No 07/15/25 11:29 stimulator Patient instructed to have device shut off --Does patient have Pacemaker or ICD? When Was Last Pacemaker Check QUESTION #4 FULL TEXT: You/Your Family Experience fever (hyperthermia) with Anesthesia Last Oral Intake Last Oral intake: Last Oral Intake NPO since Meds taken in AM with sips of water? Meds patient instructed to take am of surgery PONV PONV - pre billing clinician: PONV - pre billing clinician Female No 07/15/25 11:29 HX of Motion Sickness No 07/15/25 11:29 HX of N/V After Surgery No 07/15/25 11:29 Non-Smoker Yes 07/15/25 11:29 Duration of Surgery greater Yes 07/15/25 11:29 than 60 minutes Number of Risk Factors 2 07/15/25 11:29 PONV Score Moderate Risk 07/15/25 11:29 Height & Weight Height & Weight: Anesthesia: Height & Weight Height 5 ft 11 in 07/14/25 14:28 Respiratory Assessment Respiratory Assessment - pre billing clinician: Respiratory Tract Infection Hx - pre billing clinician Hx Respiratory Tract Infection No 07/15/25 11:29 STOP Sleep Apnea STOP Sleep Apnea - pre billing clinician: STOP Sleep Apnea - pre billing clinician Hx Hypertension Yes: controlled with med 07/15/25 11:29 Hx Sleep Apnea No 07/15/25 11:29 CPAP No 08/02/24 15:35 BIPAP Do you snore loudly (louder No 07/15/25 11:29 than talking or can be heard Do you often feel tired/ No 07/15/25 11:29 fatigued/ sleepy during daytime? Has anyone observed you stop No 07/15/25 11:29 breathing during sleep? STOP Results Negative 07/15/25 11:29 QUESTION #5 FULL TEXT : Do you snore loudly (louder than talking or can be heard through closed doors)? 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 Specify any problems Hx of Preganancy in last 3 N/A 07/15/25 11:29 Months Nurse Filling Out Transfusion NBUCHER 07/15/25 11:29 & Questions: Date: 07/15/25 07/15/25 11:29 Time: 11:30 07/15/25 11:29 Patient unable to answer at this time (ie. confused, unrespo /Reproduction History /Reproductive History - pre billing clinician: /Reproductive Hx- pre billing clinician Hx Now No 07/15/25 11:29 Gestational Age (in weeks): EDC: Hx Hx Para Hx Section SAB No 07/15/25 11:29 Does the father of the baby or his family experience fever w Father of the baby Malignant Hypertension history comment [facility] Medical History (Updated 07/15/25 @ 11:34 by Gely Anaya) Wears glasses History of hiatal hernia Smokeless tobacco use History of Holter monitoring Chest congestion Cough Bronchitis Preventative health care Flu vaccine need Fatty liver Localized skin mass, lump, or swelling URI (upper respiratory infection) Abdominal pain Alcohol use High cholesterol Restless legs Migraine headache Gastric reflux Chewing tobacco use History of echocardiogram Hypertension Health care maintenance Colon cancer screening COVID-19 Lab test negative for COVID-19 virus H/O tinnitus Arleth's disease GERD (gastroesophageal reflux disease) Kidney stone Hearing problem Generalized headaches Bone fracture Back problem Arthritis Shoulder pain Thyroid disease Home Medications ?Medication ?Instructions ?Recorded ?Last Taken ?Type amlodipine 5 mg tablet 5 mg PO DAILY #90 tabs 03/09 Unknown Rx atorvastatin 20 mg tablet 20 mg PO DAILY 90 days #90 t abs 03/09/25 Unknown Rx levothyroxine 150 mcg tablet 150 mcg PO DAILY 90 days #90 tabs 03/09/25 Unknown Rx omeprazole 40 mg capsule,delayed 40 mg PO DAILY #90 ca ps 03/09/25 Unknown Rx release Allergy/AdvReac Type Severity Reaction Status Date / Time Sulfa (Sulfonamide AdvReac Mild Rash Verified 07/15/25 11:27 Antibiotics) Family History Grandfather Alcoholism Angina at rest Grandmother Breast cancer Father High cholesterol Thyroid disorder Myocardial infarction Surgical History (Updated 07/15/25 @ 11:34 by Gely Anaya) History of colonoscopy History of appendectomy Social History Smoking Status: Never smoker Tobacco: How many years used: 20 Smokeless tobacco user: chewing tobacco alcohol intake: current alcohol intake frequency: holidays/special occasions only substance use type: does not use what type of physical activity do you participate in: walking frequency: 1-2 times per week duration: 30-45 minutes/day Audit: Pertinent Findings Pertinent Findings EKG Perinent findings: 07/19/2025. Normal sinus rhythm. Minimal voltage criteria for LVH, may be normal variant. Recommendation Anesthesia Recommendation Anesthesia recommendation: OPTIMIZED for anesthesia
[2025-07-22] VITALS (12 sets, daily range): BP systolic 101–145; BP diastolic 67–85; PULSE 68–98; RESP 16–20; TEMP 36.1–36.8; O2SAT 93–96; BMI 30.9
--- NOTE | 2025-07-22 09:19 | PRE.ANES_ITS ---
ASA Classification* ASA Classification ASA Classification: 2 Assessment & Plan Anesthesia* Anesthesia Assessment Anesthesia Assessment: Discussed sedation and/or anesthesia options, risks, benefits, and alternatives with patient/parents/legal guardian/POA. Questions invited. The patient/parents/legal guardian/POA seems to understand and agrees to proceed with anesthesia plan. Reviewed the physical assessment, medical history, allergy history and patient home medications list prior to surgery/procedure/anesthetic and documented any changes. Performed airway and anesthesia risk assessments. Anesthesia Type Anesthesia Type: General Anesthesia Focused Assessment* Airway Assessment Mouth opens: >3 cm Mallampati Score: II Labs Anesthesia Preop lab: CBC WBC, (4.4-11.0) 9.5 K/mm3 09/08/24, 14:52 RBC, (4.6-6.2) 4.82 M/mm3 09/08/24, 14:52 Hgb, (13.0-16.5) 14.7 g/dL 09/08/24, 14: Hct, (40-54) 42.0 % 09/08/24, 14:52 Plt Count, (150-450) 253 K/mm3 09/08/24, 14:52 CHEMISTRY Potassium, (3.3-5.1) 3.9 mmol/L 03/09/25, 15:42 Sodium, (133-145) 138 mmol/L 03/09/25, 15:42 BUN, (4-19) 16 mg/dL 03/09/25, 15:42 Creatinine, (0.70-1.20) 1.05 mg/dL 03/09/25, 15:42 Glucose, (70-99) 100 mg/dL H 03/09/25, 15:42 TSH, (0.300-4.200) 0.358 uIU/mL 07/19/25, 14:27 COAG Pre-Assessment Diagnosis/Proposed Procedure Planned Operative Procedure(s): hernia repair with mesh Anesthesia History Anesthesia History - driller multiple spindle: Anesthesia History - driller multiple spindle Hx Hospitalization No 07/15/25 11:29 Any Problems With Anesthesia No 07/15/25 11:29 Cholinesterase deficiency No 07/15/25 11:29 You/Your Family Experience No 07/15/25 11:29 fever (hyperthermia) with Relationship Recent Exposure to Contagious No 08/02/24 15:35 Disease Does patient have nerve No 07/15/25 11:29 stimulator Patient instructed to have device shut off --Does patient have Pacemaker or ICD? When Was Last Pacemaker Check QUESTION #4 FULL TEXT: You/Your Family Experience fever (hyperthermia) with Anesthesia Last Oral Intake Last Oral intake: Last Oral Intake NPO since Meds taken in AM with sips of water? Meds patient instructed to take am of surgery PONV PONV - driller multiple spindle: PONV - driller multiple spindle Female No 07/15/25 11:29 HX of Motion Sickness No 07/15/25 11:29 HX of N/V After Surgery No 07/15/25 11:29 Non-Smoker Yes 07/15/25 11:29 Duration of Surgery greater Yes 07/15/25 11:29 than 60 minutes Number of Risk Factors 2 07/15/25 11:29 PONV Score Moderate Risk 07/15/25 11:29 Height & Weight Height & Weight: Anesthesia: Height & Weight Height 5 ft 11 in 07/14/25 14:28 Respiratory Assessment Respiratory Assessment - driller multiple spindle: Respiratory Tract Infection Hx - driller multiple spindle Hx Respiratory Tract Infection No 07/15/25 11:29 STOP Sleep Apnea STOP Sleep Apnea - driller multiple spindle: STOP Sleep Apnea - driller multiple spindle Hx Hypertension Yes: controlled with med 07/15/25 11:29 Hx Sleep Apnea No 07/15/25 11:29 CPAP No 08/02/24 15:35 BIPAP Do you snore loudly (louder No 07/15/25 11:29 than talking or can be heard Do you often feel tired/ No 07/15/25 11:29 fatigued/ sleepy during daytime? Has anyone observed you stop No 07/15/25 11:29 breathing during sleep? STOP Results Negative 07/15/25 11:29 QUESTION #5 FULL TEXT : Do you snore loudly (louder than talking or can be heard through closed doors)? 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 Specify any problems Hx of Preganancy in last 3 N/A 07/15/25 11:29 Months Nurse Filling Out Transfusion [facility]BUCHER 07/15/25 11:29 & Questions: Date: 07/15/25 07/15/25 11:29 Time: 11:30 07/15/25 11:29 Patient unable to answer at this time (ie. confused, unrespo /Reproduction History /Reproductive History - driller multiple spindle: /Reproductive Hx- driller multiple spindle Hx Now No 07/15/25 11:29 Gestational Age (in weeks): EDC: Hx Hx Para Hx Section SAB No 07/15/25 11:29 Does the father of the baby or his family experience fever w Father of the baby Malignant Hypertension history comment Active Medications Active Medications: Current Medications Generic Name Dose Route Start Last Admin Trade Name Freq PRN Reason Stop Dose Admin Lactated Ringer's 1,000 mls @ 15 mls/hr 07/22/25 09:15 IV .Q48H AYANA PFSH Medical History Wears glasses History of hiatal hernia Smokeless tobacco use History of Holter monitoring Chest congestion Cough Bronchitis Preventative health care Flu vaccine need Fatty liver Localized skin mass, lump, or swelling URI (upper respiratory infection) Abdominal pain Alcohol use High cholesterol Restless legs Migraine headache Gastric reflux Chewing tobacco use History of echocardiogram Hypertension Health care maintenance Colon cancer screening COVID-19 Lab test negative for COVID-19 virus H/O tinnitus Arleth's disease GERD (gastroesophageal reflux disease) Kidney stone Hearing problem Generalized headaches Bone fracture Back problem Arthritis Shoulder pain Thyroid disease Home Medications ?Medication ?Instructions ?Recorded ?Last Taken ?Type amlodipine 5 mg tablet 5 mg PO DAILY #90 tabs 03/09 Unknown Rx atorvastatin 20 mg tablet 20 mg PO DAILY 90 days #90 t abs 03/09/25 Unknown Rx levothyroxine 150 mcg tablet 150 mcg PO DAILY 90 days #90 tabs 03/09/25 Unknown Rx omeprazole 40 mg capsule,delayed 40 mg PO DAILY #90 ca ps 03/09/25 Unknown Rx release Allergy/AdvReac Type Severity Reaction Status Date / Time Sulfa (Sulfonamide AdvReac Mild Rash Verified 07/15/25 11:27 Antibiotics) Family History Grandfather Alcoholism Angina at rest Grandmother Breast cancer Father High cholesterol Thyroid disorder Myocardial infarction Surgical History History of colonoscopy History of appendectomy Social History Smoking Status: Never smoker Tobacco: How many years used: 20 Smokeless tobacco user: chewing tobacco alcohol intake: current alcohol intake frequency: holidays/special occasions only substance use type: does not use what type of physical activity do you participate in: walking frequency: 1-2 times per week duration: 30-45 minutes/day Review of Systems (Anesthesia) ROS Narrative System reviewed and no additional complaints, except as documented.
--- OUTSIDE RECORDS SUMMARY | 2025-07-22 09:30 | XMS RPT_ITS | CCD ---
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 [address] [place], [address] CO2 [Moles/Vol] 23.9 mmol/L Normal 21.0-32.0 [facility] Comment on above: Performed By: #### L 500.2500, L501.9520 ####[facility] [address] [place], [address] Creatinine [Mass/Vol] 1.05 mg/dL Normal 0.70-1.20 [facility] Comment on above: Performed By: #### L 500.2500, L501.9520 ####[facility] [address] [place], [address] GAP 11 Normal 5-15 [facility] Comment on above: Performed By: #### L 500.2500, L5.9519 ####[facility] [address] [place], [address] GFR/1.73 sq M.predicted among non-blacks MDRD (S/P/Bld) [Vol rate/Area] 85 mL/min/{1.73_m2} Normal >60 [facility] Comment on above: Result Comment: mL/m in/1.73m2 CKD-EPI Creatinine Equation (2020) Performed By: #### L 500.2500, L5.20 ####[facility] [address] [place], [address] Glucose [Mass/Vol] 100 mg/dL High 70-99 [facility] Comment on above: Performed By: #### L 500.2500, L501.9520 ####[facility] [address] [place], [address] Potassium [Moles/Vol] 3.9 mmol/L Normal 3.3-5.1 [facility] Comment on above: Performed By: #### L 500.2500, L5.9520 ####[facility] [address] [place], [address] Sodium [Moles/Vol] 138 mmol/L Normal 133-145 [facility] Comment on above: Performed By: #### L 500.2500, L501.9520 ####[facility] [address] [place], [address] Urea nitrogen [Mass/Vol] 16 mg/dL Normal 4-19 [facility] Comment on above: Performed By: #### L 500.2500, L501.9520 ####[facility] [address] [place], [address] Carbon dioxide, total [Moles /volume] in Central venous bloodOrdered By: Candelario Hawkins on 03-09-2025 CO2 [Moles/Vol] 23.9 mmol/L 21.0-32.0 [facility] Chloride assayOrdered By: Kell Hawkins on 03-09-2025 Chloride [Moles/Vol] 103 mmol/L 98-108 [facility] Glomerular filtration rate ( GFR) estimation/1.73 sq m using serum, plasma, or whole bOrdered By: Candelario Hawkins on 03-09-2025 GFR/1.73 sq M.predicted among non-blacks MDRD (S/P/Bld) [Vol rate/Area] 85 mL/min/{1.73_m2} >60 [facility] Comment on above: mL/min/1.73m2 CKD-EP I Creatinine Equation (2020) Internal Medicine Office Vis iton 03-09-2025 Internal Medicine Office Visit [facility] [address] [place], [place] [address] OFFICE VISIT Date of Service: 03/09/25 MR#: [id number] Acct: [id number] Name: ROMAN BETTS Rep #: [id number] : 1970 Provider: Dr. Candelario gomez MD Age/Sex: 54/M Location: [facility] Status: Signed Intake Vital Signs 09/08/24 14:24 01/26/25 13:31 03/09/25 15:01 Height 5 ft 11 in 5 ft 11 in 5 ft 11 in Weight: 222 lb BMI 30.9 BP 128/70 H Blood Pressure Location Lt brachial Position Sitting Respiration 18 Pulse 82 Pulse Source Monitor Temp 97.8 F Temp Source Temporal Pulse Oximetry (%) 97 Oxygen Delivery Method room air Intake Visit Reasons: 6 M FU Chief Complaint: 6 M FU Is patient in pain?: No Allergies Sulfa (Sulfonamide Antibiotics) Adverse Reaction (Mild, Verified 03/09/25 15:01) Rash Medications ???Medication ???Instructions ???Recorded ???Confirmed ???Type amlodipine 5 mg tablet 5 mg PO DAILY #90 tabs 03/09/25 Rx atorvastatin 20 mg tablet 20 mg PO DAILY 90 days #90 tabs 03/09/25 Rx levothyroxine 150 mcg tablet 150 mcg PO DAILY 90 days #90 tabs 03/09/25 03/09/25 Rx omeprazole 40 mg capsule,delayed 40 mg PO DAILY #90 caps 03/09/25 0 03/09/25 Rx release PFSH Medical History Chest congestion Cough Bronchitis Preventative health care Flu vaccine need Fatty liver Localized skin mass, lump, or swelling URI (upper respiratory infection) Abdominal pain Alcohol use High cholesterol Restless legs Migraine headache Gastric reflux Chewing tobacco use History of echocardiogram Hypertension Health care maintenance Colon cancer screening COVID-19 Lab test negative for COVID-19 virus H/O tinnitus Arleth's disease GERD (gastroesophageal reflux disease) Kidney stone Hearing problem Generalized headaches Bone fracture Back problem Arthritis Shoulder pain Thyroid disease Surgical History History of appendectomy Family History Grandfather Alcoholism Angina at rest Grandmother Breast cancer Father High cholesterol Thyroid disorder Myocardial infarction Social History Smoking Status: Current every day smoker tobacco type: smokeless tobacco Tobacco: How many years used: 20 Smokeless tobacco user: chewing tobacco alcohol intake: current alcohol intake frequency: holidays/special occasions only substance use type: does not use what type of physical activity do you participate in: walking frequency: 1-2 times per week duration: 30-45 minutes/day HPI HPI Chief Complaint: 6 M FU Details: ROMAN BETTS, is a 54-year-old male presenting with hyperlipidemia management and follow-up of his chronic conditions.. He reports no acute concerns today and mentions that his breathing has returned to normal since the last visit. The patient expresses uncertainty about continuing statin therapy due to external influences but acknowledges no side effects from the medication. The patient has a history of Gastroesophageal Reflux Disease (GERD), which he manages with medication. He has been advised to taper the medication gradually to assess the necessity of continued use. Dietary triggers such as spicy foods and caffeinated drinks have been identified as exacerbating factors. History of hypertension, blood pressure today at 128/70 mmHg. No chest pain, palpitation or shortness of breath. The patient has received COVID-19 vaccinations and is advised to continue with annual boosters. He also reports having received the shingles and typhoid vaccinations, with the latter administered during service. Attestation: Documentation on this patient encounter was supported using ambient scribe technology/ voice AI technology. The patient consented to recording for the purpose of documenting the encounter. Provider reviewed content of the generated note prior to signature. ROS Const Constitutional: No body ache, chills, excessive sweating, fatigue, fever(s), frequent falls, headache(s), snoring, weight change, sleep problems, abnormal sleep pattern or change in appetite Eyes Eyes: No blurry vision, change in vision, eye pain or Light sensitivity ENT ENT: No abnormal hearing, ear or mastoid pain, tinnitus, dizziness/vertigo, nasal congestion, headache(s), neck pain or sore throat Resp Respiratory: No cough, excessive phlegm production, hemoptysis, shortness of breath, snoring or wheezing Cardio Cardiology: No chest pain at rest, chest pain with exertion, excessive sweating, shortness of breath, dyspnea on exertion, lightheaded (more content not included)... Normal [facility] Potassium measurement (mass/ volume)Ordered By: Candelario Hawkins on 03-09-2025 Potassium (Unsp spec) [Mass/Vol] 3.9 mmol/L 3.3-5.1 [facility] Serum creatinine measurement (mass/volume)Ordered By: Candelario Hawkins on 03-09-2025 Creatinine [Mass/Vol] 1.05 mg/dL 0.70-1.20 [facility] Serum glucose measurement (m ass/volume)Ordered By: Candelario Hawkins on 03-09-2025 Glucose [Mass/Vol] 100 mg/dL High 70-99 [facility] Serum or plasma calcium serenity urement (mass/volume)Ordered By: Candelario Hawkins on 03-09-2025 Calcium [Mass/Vol] 9.3 mg/dL 7.6-11.0 [facility] Serum or plasma urea nitroge n measurement (mass/volume)Ordered By: Candelario Hawkins on 03-09-2025 Urea nitrogen [Mass/Vol] 16 mg/dL 4-19 [facility] Sodium levelOrdered By: Alexandra Hawkins on 03-09-2025 Sodium [Moles/Vol] 138 mmol/L 133-145 [facility] TSH DL <= 0.005 mIU/L QnOrde red By: Candelario Hawkins on 03-09-2025 TSH Qn 2.800 uIU/mL 0.300-4.200 [facility] Thyroid Stim Hormone (TSH)on 03-09-2025 TSH 2.800 uIU/mL Normal 0.300-4.200 [facility] Comment on above: Performed By: #### L 500.2500, L501.9520 ####[facility] [address] [place], [address] Internal Medicine Office Vis iton 01-26-2025 Internal Medicine Office Visit [facility] [address] [place], [place] [address] OFFICE VISIT Date of Service: 01/26/25 MR#: [id number] Acct: [id number] Name: ROMAN BETTS Rep #: [id number] : 1970 Provider: Dr. 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 Required: No Is patient in pain?: No Allergies Sulfa (Sulfonamide Antibiotics) Adverse Reaction (Mild, Verified 01/26/25 13:19) Rash Medications ???Medication ???Instructions ???Recorded ???Confirmed ???Type amlodipine 5 mg tablet 5 mg PO DAILY #90 tabs 12/10/24 Rx atorvastatin 20 mg tablet 20 mg PO DAILY 90 days #90 tabs 01/26/25 Rx levothyroxine 150 mcg tablet 150 mcg PO DAILY 90 days #90 tabs 12/10/24 01/26/25 Rx omeprazole 40 mg capsule,delayed 40 mg PO DAILY #90 caps 12/10/24 0 01/26/25 Rx release prednisone 20 mg tablet 40 mg (2 x 20 mg) PO QDAY #10 tabs 01/26/25 01/26/25 Rx PFSH Medical History (Updated 01/26/25 @ 17:[address] Candelario Hawkins MD) Chest congestion Cough Bronchitis Preventative health care Flu vaccine need Fatty liver Localized skin mass, lump, or swelling URI (upper respiratory infection) Abdominal pain Alcohol use High cholesterol Restless legs Migraine headache Gastric reflux Chewing tobacco use History of echocardiogram Hypertension Health care maintenance Colon cancer screening COVID-19 Lab test negative for COVID-19 virus H/O tinnitus Arleth's disease GERD (gastroesophageal reflux disease) Kidney stone Hearing problem Generalized headaches Bone fracture Back problem Arthritis Shoulder pain Thyroid disease Surgical History History of appendectomy Family History Grandfather Alcoholism Angina at rest Grandmother Breast cancer Father High cholesterol Thyroid disorder Myocardial infarction Social History Smoking Status: Current every day smoker tobacco type: smokeless tobacco Tobacco: How many years used: 20 Smokeless tobacco user: chewing tobacco alcohol intake: current alcohol intake frequency: holidays/special occasions only substance use type: does not use what type of physical activity do you participate in: walking frequency: 1-2 times per week duration: 30-45 minutes/day HPI HPI Chief Complaint: Cough, congestion Details: ROMAN BETTS, is a 54 M who presents to the office today for an acute visit. Reports about 3 weeks of cough, chest congestion and wheezing. Symptoms have been on and off and not completely resolved. Was seen at an urgent care prescribed inhaled albuterol/steroid with some but not complete improvement. No chills or fever. No nausea, vomiting or change in bowel habit. Other people living with him with similar symptoms but have since improved. Had a chest x-ray which did not show any acute concerns. He has also received 2 rounds of antibiotics without consistent improvement. ROS Const Constitutional: No body ache, chills, excessive sweating, fatigue, fever(s), frequent falls, headache(s), snoring, weakness, sleep problems or change in appetite Eyes Eyes: No blurry vision, change in vision, floaters, visual disturbances, eye pain or Light sensitivity ENT ENT: No abnormal hearing, ear or mastoid pain, tinnitus, balance problems, nosebleed/epistaxis, nasal congestion, headache(s), neck pain or sore throat Resp Respiratory: Positive for cough, chest congestion, shortness of breath, wheezing and other; No excessive phlegm production, pain on inspiration or snoring Cardio Cardiology: No chest pain at rest, chest pain with exertion, excessive sweating, shortness of breath, dyspnea on exertion, lightheadedness, orthopnea or palpitations Gastro GI: No abdominal pain, change in bowel habits, constipation, cramping, diarrhea, nausea/dyspepsia or vomiting Genitourinary Male: No burning urination, painful urination, urinary incontinence or urinary frequency Musc Musculoskeletal: No abnormal gait, joint pain, back pain, limited range of motion, neck pain or numbness Skin Skin: No dry skin, redness, excessive hair growth, yellowing of the eye, lesions, itchy eyes, rash or wounds Neuro Neurology: No abnormal (more content not included)... Normal [facility] CNOVon 01-11-2025 CNOV Office Visit (UCWSTR) ROMAN BETTS ([id number]) 1970 M Date Time Provider Department 01/11/25 7:30 PM ROXANNE ANDERSON [facility] [[email or web address]] During your visit today, we recorded the following information about you: Temperature Pulse Respiration Blood pressure 99.6 degrees 98/minute 22/minute 112/81 Weight 100 kg Roxanne Anderson, DHIRAJ.MECHANICAL ASSEMBLY 01/11/2025 7:58 PM Signed [facility] Subjective Roman Betts is a 54 year old male. Patient presents with: Cough: Chest congestion, headache, sinus pressure, SOB, wheezing, tightness in chest, x 5 days increasing Patient came in with complaints of cough shortness of breath and wheezing. Patient said that he has been sick for 5 days and seems like it is getting worse. Patient says he did have pneumonia about a month ago. Patient has no lung history said he has no asthma was never smoker. The history is provided by the patient. No claims director was used. Cough Review of Systems Respiratory: Positive for cough. Objective BP 112/81 Pulse 98 Temp 37.6 ?C (99.6 ?F) Resp 22 Wt 100 kg (220 lb 7.4 oz) SpO2 97% Physical Exam Constitutional: Appearance: Normal appearance. HENT: Right Ear: Tympanic membrane, ear canal and external ear normal. Left Ear: Tympanic membrane, ear canal and external ear normal. Nose: Nose normal. Mouth/Throat: Mouth: Mucous membranes are moist. Pharynx: Posterior oropharyngeal erythema present. Eyes: Pupils: Pupils are equal, round, and reactive to light. Cardiovascular: Rate and Rhythm: Normal rate and regular rhythm. Heart sounds: Normal heart sounds. Pulmonary: Effort: Pulmonary effort is normal. Breath sounds: Wheezing present. Neurological: Mental Status: He is alert. No past medical history on file. No past surgical history on file. ALLERGIES Sulfur Dioxide MEDICATIONS atorvastatin (LIPITOR) 20 mg tablet Take 1 tablet by mouth daily at bedtime. amLODIPine (NORVASC) 5 mg tablet Take 1 tablet by mouth once daily. SYNTHROID 150 mcg tablet Take 1 tablet by mouth every morning. omeprazole (PRILOSEC) 40 mg capsule albuterol HFA (PROVENTIL HFA, VENTOLIN HFA) 90 mcg/actuation inhaler Inhale 2 Puffs as instructed every 4 hours as needed for wheezing/shortness of breath. famotidine (PEPCID) 20 mg tablet Take 1 tablet by mouth once daily as needed. (Patient not taking: Reported on 01/11/2025) No family history on file. Social History Tobacco Use Smoking status: Never Smokeless tobacco: Current {ASSESSMENT/PLAN: 1. Streptococcus exposure - ICD9: V01.89, ICD10: Z20.818 (primary diagnosis) - STREP A MOLECULAR (POC) 2. Acute cough - ICD9: 786.2, ICD10: R05.1 - XR CHEST 2V FRONTAL/LAT 3. Respiratory infection - ICD9: 519.8, ICD10: J98.8 - AMOXICILLIN 875 MG-POTASSIUM CLAVULANATE 125 MG TABLET - AIRSUPRA 90 MCG-80 MCG/ACTUATION HFA AEROSOL INHALER - BROMPHENIRAMINE-PSEU DOEPHEDRINE-DM 2 MG-30 MG-10 MG/5 ML ORAL SYRUP Patient's x-ray was not back before we closed. When x-ray comes back please call patient let him know the findings. Because patient was recently on doxycycline I am placing him on a different antibiotic Augmentin. Because patient is extremely wheezy throughout bilateral lobes I am treating him for a possible pneumonia. If the x-ray is negative patient can stop the antibiotic but can continue the other medication. Roxanne Anderson APRN.MECHANICAL ASSEMBLY History and Record Review External record(s) reviewed: no prior records. Disposition The patient was discharged. Procedures Allergies As of Date: 01/11/2025 Noted Allergy Reaction SULFUR DIOXIDE 11/11/2019 2 - Rash Date Reviewed: 01/11/2025 Reviewed by: Mckenna Cooney LPN - Fully Assessed Reason for Visit: Cough [28] Cmt: Chest congestion, headache, sinus pressure, SOB, wheezing, tightness in chest, x 5 days increasing Primary Visit Diagnosis:Streptococ cus exposure [Z20.818] Other Visit Diagnoses:Acute cough [R05.1] Respiratory infection [J98.8] Order(s):XR CHEST 2V FRONTAL/LAT [3194364] Order #: [id number] FUTURE STREP A MOLECULAR (POC) [0583332] Order #: [id number] #:[id number] amoxicillin-clavulan ate potassium (AUGMENTIN) 875-125 mg per tabletTake 1 tablet by mouth two times a day for 7 days.Disp: 14 tabletRfl: 0 albuterol-budesonide HFA (AIRSUPRA) 90-80 mcg/actuation inhalerInhale 2 puffs as instructed every 6 hours as needed for wheezing/shortness of breath. Do not take more than 12 inhalations in a 24 hour period.Disp: 1 eachRfl: 0 Brompheniramine-Pseu doeph-DM (BROMFED DM) 2-30-10 mg/5 mL syrupTake 5 mL by mouth four times a day as needed.Disp: 120 mLRfl: 0 Prescriptions as of 01/11/2025 - atorvastatin (LIPITOR) 20 mg tablet Take 1 tablet by mouth daily at bedtime. - amoxicillin-clavulan ate potassium (AUGMENTIN) 875-125 mg per tablet Take 1 tablet by mouth two times a da (more content not included)... Normal [facility] STREP A MOLECULAR (POC)on Procedural Control Valid [facility] Strep A (POCT) Negative Negative [facility] XR CHEST 2V FRONTAL/LATon XR CHEST 2V FRONTAL/LAT * * *Final Repor t* * * DATE OF EXAM: Jan 11 2025 7:52PM WOX [id number] - XR CHEST 2V FRONTAL/LAT / PROCEDURE REASON: Acute cough * * * * Physician Interpretation * * * * EXAMINATION: CHEST RADIOGRAPH (2 VIEW FRONTAL and LATERAL) CLINICAL HISTORY: Acute cough MQ: XC2_6 EXAM DATE/TIME: 01/11/2025 7:52 PM COMPARISON: No relevant prior studies available. RESULT: Lines, tubes, and devices: None. Lungs and pleura: No consolidation. No lung mass. No pleural effusion. No pneumothorax. Cardiomediastinal silhouette: Normal cardiomediastinal silhouette. Bones and soft tissues: There are degenerative in the spine. IMPRESSION: No acute radiographic abnormality. Radio Producer: [facility] Transcribe Date/Time: Jan 11 2025 8:03P Dictated by : NELLI HERNANDEZ MD This examination was interpreted and the report reviewed and electronically signed by: NELLI HERNANDEZ MD on Jan 11 2025 8:03PM EST [id number] Normal [facility] XR Chest PA and Lateralon IMPRESSION: No acute radiographic abnormality. Radio Producer: [facility] Transcribe Date/Time: Jan 11 2025 8:03P Dictated by : NELLI HERNANDEZ MD This examination was interpreted and the report reviewed and electronically signed by: NELLI HERNANDEZ MD on Jan 11 2025 8:03PM EST DIVISION OF RADIOLOGY * * *Final Report* * * DATE OF EXAM: Jan 11 2025 7:52PM WOX [id number] - XR CHEST 2V FRONTAL/LAT / PROCEDURE REASON: Acute cough * * * * Physician Interpretation * * * * EXAMINATION: CHEST RADIOGRAPH (2 VIEW FRONTAL & LATERAL) CLINICAL HISTORY: Acute cough MQ: XC2_6 EXAM DATE/TIME: 01/11/2025 7:52 PM COMPARISON: No relevant prior studies available. RESULT: Lines, tubes, and devices: None. Lungs and pleura: No consolidation. No lung mass. No pleural effusion. No pneumothorax. Cardiomediastinal silhouette: Normal cardiomediastinal silhouette. Bones and soft tissues: There are degenerative in the spine. DIVISION OF RADIOLOGY Provider, [facility] - 01/11/2025 * * *Final Report* * * DATE OF EXAM: Jan 11 2025 7:52PM WOX 5291 - XR CHEST 2V FRONTAL/LAT / PROCEDURE REASON: Acute cough * * * * Physician Interpretation * * * * EXAMINATION: CHEST RADIOGRAPH (2 VIEW FRONTAL & LATERAL) CLINICAL HISTORY: Acute cough MQ: XC2_6 EXAM DATE/TIME: 01/11/2025 7:52 PM COMPARISON: No relevant prior studies available. RESULT: Lines, tubes, and devices: None. Lungs and pleura: No consolidation. No lung mass. No pleural effusion. No pneumothorax. Cardiomediastinal silhouette: Normal cardiomediastinal silhouette. Bones and soft tissues: There are degenerative in the spine. IMPRESSION IMPRESSION: No acute radiographic abnormality. Radio Producer: [facility] Transcribe Date/Time: Jan 11 2025 8:03P Dictated by : NELLI HERNANDEZ MD This examination was interpreted and the report reviewed and electronically signed by: NELLI HERNANDEZ MD on Jan 11 2025 8:03PM [facility] Radiology Study observation (narrative) Alana [facility] XR Chest PA and LateralOrder ed By: [facility] Provider on 01-11-2025 [facility] CNOVon 11-28-2024 CNOV Office Visit (UCWSTR) ROMAN BETTS ([id number]) 1970 M Date Time Provider Department 11/28/24 9:15 AM ZAKIYA DAMIAN [facility] [[email or web address]] During your visit today, we recorded the following information about you: Temperature Pulse Respiration Blood pressure 98.2 degrees 63/minute 16/minute 128/80 Weight 99.6 kg Zakiya Damian PA-C 11/28/2024 9:34 AM Signed This note was created using [employer]ter. Subjective Roman Betts is a 54 year old male. Patient is a 54-year-old male who complains of worsening congestion, sinus pressure and productive cough that he has been experiencing for the past 1 week. Patient now describes increased episodes of tight wheezing and shortness of breath with exertion. Patient reports no fever, chills or myalgia. Patient denies left chest pain, tightness or pressure reports no episodes of acute dyspnea. Patient has no history of asthma or COPD and does not smoke. Patient did take a home COVID-19 test and the result was negative. Review of Systems HENT: Positive for congestion, sinus pressure and sore throat. Respiratory: Positive for cough, shortness of breath and wheezing. All other systems reviewed and are negative. Objective BP 128/80 Pulse 63 Temp 36.8 ?C (98.2 ?F) (Tympanic) Resp 16 Wt 99.6 kg (219 lb 9.3 oz) SpO2 95% Physical Exam Vitals and nursing note reviewed. Constitutional: Appearance: Normal appearance. He is normal weight. HENT: Head: Normocephalic and atraumatic. Right Ear: Tympanic membrane, ear canal and external ear normal. Left Ear: Tympanic membrane, ear canal and external ear normal. Nose: Nose normal. Mouth/Throat: Mouth: Mucous membranes are moist. Pharynx: Oropharynx is clear. Eyes: Extraocular Movements: Extraocular movements intact. Conjunctiva/sclera: Conjunctivae normal. Pupils: Pupils are equal, round, and reactive to light. Cardiovascular: Rate and Rhythm: Normal rate and regular rhythm. Pulses: Normal pulses. Heart sounds: Normal heart sounds. Pulmonary: Effort: Pulmonary effort is normal. Breath sounds: Wheezing and rhonchi present. Musculoskeletal: Cervical back: Normal range of motion and neck supple. Skin: General: Skin is warm and dry. Capillary Refill: Capillary refill takes less than 2 seconds. Neurological: General: No focal deficit present. Mental Status: He is alert and oriented to person, place, and time. Psychiatric: Mood and Affect: Mood normal. Behavior: Behavior normal. Thought Content: Thought content normal. Judgment: Judgment normal. Assessment and Plan Physical exam findings as noted above. X-ray imaging is not available at this facility at this time. Patient was provided with prescriptions for doxycycline 100 mg, prednisone 20 mg, Tessalon 100 mg and albuterol MDI. Patient was very clearly instructed to report to an emergency department if he develops any additional acute or worsening symptoms as at that time he will require laboratory testing and imaging. Patient verbalizes clear understanding of the above instructions. CLINICAL IMPRESSION: Bronchopneumonia ASSESSMENT/PLAN: 1. Bronchopneumonia - ICD9: 485, ICD10: J18.0 - ALBUTEROL SULFATE HFA 90 MCG/ACTUATION AEROSOL INHALER - INHALATIONAL SPACING DEVICE - BENZONATATE 100 MG CAPSULE - DOXYCYCLINE HYCLATE 100 MG TABLET - PREDNISONE 20 MG TABLET MDM Risk of Complications, Morbidity, and/or Mortality Presenting problems: low Diagnostic procedures: low Management options: low Zakiya GIGI Damian Allergies As of Date: 11/28/2024 Noted Allergy Reaction SULFUR DIOXIDE 11/11/2019 2 - Rash Date Reviewed: 11/28/2024 Reviewed by: Monica Tinajero LPN - Fully Assessed Reason for Visit: Pain, Sinus [857] Cmt: Sinus pain and pressure, and wheezing x 4 days Primary Visit Diagnosis:Bronchopne umonia [J18.0] Order(s):albuterol HFA (PROVENTIL HFA, VENTOLIN HFA) 90 mcg/actuation inhalerInhale 2 Puffs as instructed every 4 hours as needed for wheezing/shortness of breath.Disp: 1 EachRfl: 0 Inhalational Spacing Device1 Device one time only for 1 dose.Disp: 1 EachRfl: 0 benzonatate (TESSALON PERLE) 100 mg capsuleTake 1 capsule by mouth three times a day as needed for cough for up to 7 days.Disp: 21 capsuleRfl: 0 doxycycline (VIBRA-TABS) 100 mg tabletTake 1 tablet by mouth two times a day for 10 days.Disp: 20 tabletRfl: 0 predniSONE (DELTASONE) 20 mg tabletTake 1 tablet by mouth two times a day for 5 days.Disp: 10 tabletRfl: 0 Prescriptions as of 11/28/2024 - albuterol HFA (PROVENTIL HFA, VENTOLIN HFA) 90 mcg/actuation inhaler Inhale 2 Puffs as instructed every 4 hours as needed for wheezing/shortness of breath. - Inhalational Spacing Device 1 Device one time only for 1 dose. - benzonatate (TESSALON PERLE) 100 mg capsule Take 1 capsule by mouth three times a day as needed for cough for up to 7 days. (more content not included)... Normal [facility] Basic Metabolic Profile (BMP )on 10-11-2024 BUN/CRE 16.1 RATIO Normal 10-20 [facility] Comment on above: Performed By: #### L 500.2500 ####[facility] [address] [place], [address] CA,Total 9.1 mg/dL Normal 8.5-10.1 [facility] Comment on above: Performed By: #### L 500.2500 ####[facility] [address] [place], [address] Chloride [Moles/Vol] 105 mmol/L Normal 98-107 [facility] Comment on above: Performed By: #### L 500.2500 ####[facility] [address] [place], [address] CO2 [Moles/Vol] 26.0 mmol/L Normal 21.0-32.0 [facility] Comment on above: Performed By: #### L 500.2500 ####[facility] [address] [place], [address] Creatinine [Mass/Vol] 1.12 mg/dL Normal 0.70-1.30 [facility] Comment on above: Result Comment: The validity of the calculated GFR GFRAA in patients over 70 years has not been determined. Clinical correlation is essential. Performed By: #### L 500.2500 ####[facility] [address] [place], [address] EST GFR - AA 88 mL/min Normal >60 [facility] Comment on above: Result Comment: Afri can [place] GFR Calc Performed By: #### L 500.2500 ####[facility] [address] [place], [address] GAP 9 Normal 5-15 [facility] Comment on above: Performed By: #### L 500.2500 ####[facility] [address] [place], [address] GFR/1.73 sq M.predicted among non-blacks MDRD (S/P/Bld) [Vol rate/Area] 73 mL/min/{1.73_m2} Normal >60 [facility] Comment on above: Result Comment: Non- GFR Calc Performed By: #### L 500.2500 ####[facility] [address] [place], [address] Glucose [Mass/Vol] 154 mg/dL High 74-106 [facility] Comment on above: Result Comment: Fast ing Glucose result greater than or equal to 126 mg/dL suggests DIABETES MELLITUS per A.D.A. criteria. Performed By: #### L 500.2500 ####[facility] [address] [place], [address] Potassium [Moles/Vol] 4.2 mmol/L Normal 3.5-5.1 [facility] Comment on above: Performed By: #### L 500.2500 ####[facility] [address] [place], [address] Sodium [Moles/Vol] 140 mmol/L Normal 136-145 [facility] Comment on above: Performed By: #### L 500.2500 ####[facility] [address] [place], [address] Urea nitrogen [Mass/Vol] 18 mg/dL Normal 7-18 [facility] Comment on above: Performed By: #### L 500.2500 ####[facility] [address] [place], [address] Blood urea nitrogen (BUN)/cr eatinine ratioOrdered By: Candelario Hawkins on 10-11-2024 Urea nitrogen/Creatinine [Mass ratio] 16.1 mg/mg 10-20 [facility] Carbon dioxide measurementOr dered By: Candelario Hawkins on 10-11-2024 CO2 [Moles/Vol] 26.0 mmol/L 21.0-32.0 [facility] Chloride measurementOrdered By: Candelario Hawkins on 10-11-2024 Chloride [Moles/Vol] 105 mmol/L 98-107 [facility] Glomerular filtration rate ( GFR) estimationOrdered By: Candelario Hawkins on 10-11-2024 GFR/1.73 sq M.predicted among non-blacks MDRD (S/P/Bld) [Vol rate/Area] 73 mL/min/{1.73_m2} >60 [facility] Comment on above: Non- GFR Calc Glucose measurementOrdered B y: Candelario Hawkins on 10-11-2024 Glucose [Mass/Vol] 154 mg/dL High 74-106 [facility] Comment on above: Fasting Glucose resu lt greater than or equal to 126 mg/dL suggests DIABETES MELLITUS per A.D.A. criteria. Potassium measurementOrdered By: Candelario Hawkins on 10-11-2024 Potassium [Moles/Vol] 4.2 mmol/L 3.5-5.1 [facility] Serum anion gap measurementO rdered By: Candelario Hawkins on 10-11-2024 Anion gap [Moles/Vol] 9 mmol/L 5-15 [facility] Serum or plasma calcium serenity urement (mass/volume)Ordered By: Candelario Hawkins on 10-11-2024 Calcium [Mass/Vol] 9.1 mg/dL 8.5-10.1 [facility] Serum or plasma creatinine m easurement (mass/volume)Ordered By: Candelario Hawkins on 10-11-2024 Creatinine [Mass/Vol] 1.12 mg/dL 0.70-1.30 [facility] Comment on above: The validity of the calculated GFR & GFRAA in patients over 70 years has not been determined. Clinical correlation is essential. Serum or plasma urea nitroge n measurement (mass/volume)Ordered By: Candelario Hawkins on 10-11-2024 Urea nitrogen [Mass/Vol] 18 mg/dL 7-18 [facility] Sodium levelOrdered By: Alexandra Hawkins on 10-11-2024 Sodium [Moles/Vol] 140 mmol/L 136-145 [facility] CBC W/Diff, Automatedon -0 Absolute Lymph 2.38 X10 3/uL Normal 0.83-4.51 [facility] Comment on above: Performed By: #### L 501.9910, L500.4100, L100.0100, L500.4050, L501.9520 #### [facility] [address] [place], [address] Absolute Neut 6.3 X10 3/uL Normal 2.0-7.7 [facility] Comment on above: Performed By: #### L 501.9910, L500.4100, L100.0100, L500.4050, L501.9520 #### [facility] [address] [place], [address] Basophils/100 WBC (Bld) 0.7 % Normal 0-1 [facility] Comment on above: Performed By: #### L 501.9910, L500.4100, L100.0100, L500.4050, L501.9520 #### [facility] [address] [place], [address] Eosinophils/100 WBC (Bld) 0.9 % Normal 0-5 [facility] Comment on above: Performed By: #### L 501.9910, L500.4100, L100.0100, L500.4050, L501.9520 #### [facility] [address] [place], [address] Erythrocyte distribution width (RBC) [Ratio] 12.3 % Normal 11.6-14.6 [facility] Comment on above: Performed By: #### L 501.9910, L500.4100, L100.0100, L500.4050, L501.9520 #### [facility] [address] [place], [address] Hematocrit (Bld) [Volume fraction] 42.0 % Normal 40-54 [facility] Comment on above: Performed By: #### L 501.9910, L500.4100, L100.0100, L500.4050, L501.9520 #### [facility] [address] [place], [address] Hemoglobin (Bld) [Mass/Vol] 14.7 g/dL Normal 13.0-16.5 [facility] Comment on above: Performed By: #### L 501.9910, L500.4100, L100.0100, L500.4050, L501.9520 #### [facility] [address] [place], [address] IG% 0.300 Normal 0.0-0.9 [facility] Comment on above: Result Comment: IG% - Immature Granulocytes (promyelocytes, myelocytes and metamyelocytes) > 1% indicates that a LEFT SHIFT is Present. Performed By: #### L 501.9910, L500.4100, L100.0100, L500.4050, L501.9520 #### [facility] [address] [place], [address] Lymphocytes/100 WBC (Bld) 25.0 % Normal 19-41 [facility] Comment on above: Performed By: #### L 501.9910, L500.4100, L100.0100, L500.4050, L501.9520 #### [facility] [address] [place], [address] MCH (RBC) [Entitic mass] 30.5 pg Normal 27.0-32.0 [facility] Comment on above: Performed By: #### L 501.9910, L500.4100, L100.0100, L500.4050, L501.9520 #### [facility] [address] [place], [address] MCHC (RBC) [Mass/Vol] 35.0 g/dL Normal 32-36 [facility] Comment on above: Performed By: #### L 501.9910, L500.4100, L100.0100, L500.4050, L501.9520 #### [facility] [address] [place], [address] MCV (RBC) [Entitic vol] 87.1 fL Normal 80-94 [facility] Comment on above: Performed By: #### L 501.9910, L500.4100, L100.0100, L500.4050, L501.9520 #### [facility] [address] [place], [address] Monocytes/100 WBC (Bld) 6.6 % Normal 0-10 [facility] Comment on above: Performed By: #### L 501.9910, L500.4100, L100.0100, L500.4050, L501.9520 #### [facility] [address] [place], [address] Neutrophils/100 WBC (Bld) 66.5 % Normal 47-70 [facility] Comment on above: Performed By: #### L 501.9910, L500.4100, L100.0100, L500.4050, L501.9520 #### [facility] [address] [place], [address] Nucleated RBC (Bld) [#/Vol] 0 10*3/uL Normal 0-5 [facility] Comment on above: Performed By: #### L 501.9910, L500.4100, L100.0100, L500.4050, L501.9520 #### [facility] [address] [place], [address] Platelet mean volume (Bld) [Entitic vol] 10.6 fL Normal 6.2-12.0 [facility] Comment on above: Performed By: #### L 501.9910, L500.4100, L100.0100, L500.4050, L501.9520 #### [facility] [address] [place], [address] Platelets (Bld) [#/Vol] 253 10*3/uL Normal 150-450 [facility] Comment on above: Performed By: #### L 501.9910, L500.4100, L100.0100, L500.4050, L501.9520 #### [facility] [address] [place], [address] RBC (Bld) [#/Vol] 4.82 10*6/uL Normal 4.6-6.2 [facility] Comment on above: Performed By: #### L 501.9910, L500.4100, L100.0100, L500.4050, L501.9520 #### [facility] [address] [place], [address] RDW SD 39.3 fl Normal 35.1-43.9 [facility] Comment on above: Performed By: #### L 501.9910, L500.4100, L100.0100, L500.4050, L501.9520 #### [facility] [address] [place], [address] WBC (Bld) [#/Vol] 9.5 10*3/uL Normal 4.4-11.0 [facility] Comment on above: Performed By: #### L 501.9910, L500.4100, L100.0100, L500.4050, L501.9520 #### [facility] [address] [place], [address] Comprehensive Metabolic Prof [facility] 09-08-2024 Albumin [Mass/Vol] 4.4 g/dL Normal 3.2-5.0 [facility] Comment on above: Performed By: #### L 501.9910, L500.4100, L100.0100, L500.4050, L501.9520 #### [facility] [address] [place], [address] Albumin/Globulin [Mass ratio] 1.4 {ratio} Normal 0.9-2.4 [facility] Comment on above: Performed By: #### L 501.9910, L500.4100, L100.0100, L500.4050, L501.9520 #### [facility] [address] [place], [address] ALK P 59 U/L Normal 45-117 [facility] Comment on above: Performed By: #### L 501.9910, L500.4100, L100.0100, L500.4050, L501.9520 #### [facility] [address] [place], [address] ALT [Catalytic activity/Vol] 54 U/L Normal 16-61 [facility] Comment on above: Performed By: #### L 501.9910, L500.4100, L100.0100, L500.4050, L501.9520 #### [facility] [address] [place], [address] AST [Catalytic activity/Vol] 27 U/L Normal 15-37 [facility] Comment on above: Performed By: #### L 501.9910, L500.4100, L100.0100, L500.4050, L501.9520 #### [facility] [address] [place], [address] Bilirubin [Mass/Vol] 0.60 mg/dL Normal 0.20-1.00 [facility] Comment on above: Result Comment: For patients on eltrombopag therapy, use of Dimension [place] TBIL is not recommended. Performed By: #### L 501.9910, L500.4100, L100.0100, L500.4050, L501.9520 #### [facility] [address] [place], [address] BUN/CRE 11.7 RATIO Normal 10-20 [facility] Comment on above: Performed By: #### L 501.9910, L500.4100, L100.0100, L500.4050, L501.9520 #### [facility] [address] [place], [address] CA,Total 9.0 mg/dL Normal 8.5-10.1 [facility] Comment on above: Performed By: #### L 501.9910, L500.4100, L100.0100, L500.4050, L501.9520 #### [facility] [address] [place], [address] Chloride [Moles/Vol] 104 mmol/L Normal 98-107 [facility] Comment on above: Performed By: #### L 501.9910, L500.4100, L100.0100, L500.4050, L501.9520 #### [facility] [address] [place], [address] CO2 [Moles/Vol] 23.0 mmol/L Normal 21.0-32.0 [facility] Comment on above: Performed By: #### L 501.9910, L500.4100, L100.0100, L500.4050, L501.9520 #### [facility] [address] [place], [address] Creatinine [Mass/Vol] 1.11 mg/dL Normal 0.70-1.30 [facility] Comment on above: Result Comment: The validity of the calculated GFR GFRAA in patients over 70 years has not been determined. Clinical correlation is essential. Performed By: #### L 501.9910, L500.4100, L100.0100, L500.4050, L501.9520 #### [facility] [address] [place], [address] EST GFR - AA 89 mL/min Normal >60 [facility] Comment on above: Result Comment: Afri can [place] GFR Calc Performed By: #### L 501.9910, L500.4100, L100.0100, L500.4050, L501.9520 #### [facility] [address] [place], [address] GAP 9 Normal 5-15 [facility] Comment on above: Performed By: #### L 501.9910, L500.4100, L100.0100, L500.4050, L501.9520 #### [facility] [address] [place], [address] GFR/1.73 sq M.predicted among non-blacks MDRD (S/P/Bld) [Vol rate/Area] 74 mL/min/{1.73_m2} Normal >60 [facility] Comment on above: Result Comment: Non- GFR Calc Performed By: #### L 501.9910, L500.4100, L100.0100, L500.4050, L501.9520 #### [facility] [address] [place], [address] Globulin (S) [Mass/Vol] 3.2 g/dL Normal 2.2-4.2 [facility] Comment on above: Performed By: #### L 501.9910, L500.4100, L100.0100, L500.4050, L501.9520 #### [facility] [address] [place], [address] Glucose [Mass/Vol] 98 mg/dL Normal 74-106 [facility] Comment on above: Performed By: #### L 501.9910, L500.4100, L100.0100, L500.4050, L501.9520 #### [facility] [address] [place], [address] Potassium [Moles/Vol] 3.3 mmol/L Low 3.5-5.1 [facility] Comment on above: Performed By: #### L 501.9910, L500.4100, L100.0100, L500.4050, L501.9520 #### [facility] [address] [place], [address] Sodium [Moles/Vol] 136 mmol/L Normal 136-145 [facility] Comment on above: Performed By: #### L 501.9910, L500.4100, L100.0100, L500.4050, L501.9520 #### [facility] [address] [place], [address] T PROT 7.6 g/dL Normal 6.4-8.2 [facility] Comment on above: Performed By: #### L 501.9910, L500.4100, L100.0100, L500.4050, L501.9520 #### [facility] [address] [place], [address] Urea nitrogen [Mass/Vol] 13 mg/dL Normal 7-18 [facility] Comment on above: Performed By: #### L 501.9910, L500.4100, L100.0100, L500.4050, L501.9520 #### [facility] [address] [place], [address] Internal Medicine Office Vis [facility] 09-08-2024 Internal Medicine Office Visit [facility] [address] [place] [address] [place] [address] OFFICE VISIT Date of Service: 09/08/24 MR#: [id number] Acct: [id number] Name: ROMAN BETTS Rep #: [id number] : 1970 Provider: Dr. 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: No Accompanied by: Self Is patient in pain?: Yes (b/l shoulder ) Allergies Sulfa (Sulfonamide Antibiotics) Adverse Reaction (Mild, Verified 09/08/24 14:21) Rash Medications ???Medication ???Instructions ???Recorded ???Confirmed ???Type levothyroxine 150 mcg tablet 150 mcg PO DAILY 90 days #90 tabs 03/10/24 09/08/24 Rx amlodipine 5 mg tablet 5 mg PO DAILY #90 tabs 06/10/24 09/08/24 Rx atorvastatin 20 mg tablet 20 mg PO DAILY 90 days #90 tabs 06/10/24 09/08/24 Rx omeprazole 40 mg capsule,delayed 40 mg PO DAILY #90 caps 06/10/24 09/08/24 Rx release Nurse's Note: [facility] Medical History (Updated 09/08/24 @ 14:[address] Candelario Hawkins MD) Preventative health care Flu vaccine need Fatty liver Localized skin mass, lump, or swelling URI (upper respiratory infection) Abdominal pain Alcohol use High cholesterol Restless legs Migraine headache Gastric reflux Chewing tobacco use History of echocardiogram Hypertension Health care maintenance Colon cancer screening COVID-19 Lab test negative for COVID-19 virus H/O tinnitus Arleth's disease GERD (gastroesophageal reflux disease) Kidney stone Hearing problem Generalized headaches Bone fracture Back problem Arthritis Shoulder pain Thyroid disease Surgical History History of appendectomy Family History Grandfather Alcoholism Angina at rest Grandmother Breast cancer Father High cholesterol Thyroid disorder Myocardial infarction Social History Smoking Status: Current every day smoker tobacco type: smokeless tobacco Tobacco: How many years used: 20 Smokeless tobacco user: chewing tobacco alcohol intake: current alcohol intake frequency: holidays/special occasions only substance use type: does not use what type of physical activity do you participate in: walking frequency: 1-2 times per week duration: 30-45 minutes/day HPI HPI Chief Complaint: 6m fu Details: ROMAN BETTS, is a 54 M who presents to the office today for 6-month follow-up/yearly. No acute concerns at this time. No significant changes in personal or family history since his last visit. [facility] study [facility] due to concerns with sleep apnea however this came back negative for sleep apnea. Stays active. Has had gotten his flu and COVID vaccines. Status post COVID in May. Has had his colonoscopy, no urinary concerns reported. Blood pressure today at 118/68 mmHg, currently on amlodipine which he is taking as prescribed. Other chronic conditions are stable. ROS Const Constitutional: No body ache, chills, excessive sweating, fatigue, fever(s), frequent falls, headache(s), snoring, weakness or change in appetite Eyes Eyes: No blurry vision, change in vision, bulging eyes, floaters, visual disturbances, eye pain or Light sensitivity ENT ENT: No abnormal hearing, ear or mastoid pain, tinnitus, balance problems, nosebleed/epistaxis, nasal congestion, headache(s), neck pain or sore throat Resp Respiratory: Positive for cough (intermittent, ); No excessive phlegm production, pain on inspiration, shortness of breath, snoring or wheezing Cardio Cardiology: No chest pain at rest, chest pain with exertion, excessive sweating, dyspnea on exertion, lightheadedness, orthopnea or palpitations Gastro GI: No abdominal pain, change in bowel habits, constipation, cramping, diarrhea, nausea/dyspepsia or vomiting Genitourinary Male: No burning urination, painful urination, urinary incontinence or urinary frequency Musc Musculoskeletal: No abnormal gait, joint pain, back pain, limited range of motion, muscle weakness, neck pain or numbness Skin Skin: No dry skin, redness, excessive hair growth, yellowing of the eye, lesions, itchy eyes, rash or wounds Neuro Neurology: No abnormal gait, abnormal hearing, behavioral changes, unsteady gait/balance, weakness, frequent falls, headache(s), memory loss, numbness or (more content not included)... Normal [facility] Lipid Profileon 09-08-2024 Cholesterol [Mass/Vol] 149 mg/dL Normal 200 [facility] Comment on above: Result Comment: <200 mg/dL Desirable 200-240 mg/dL Borderline >240 mg/dL High Risk Performed By: #### L 501.9910, L500.4100, L100.0100, L500.4050, L501.9520 #### [facility] [address] [place], [place], [id number] Cholesterol in HDL [Mass/Vol] 54 mg/dL Normal [facility] Comment on above: Result Comment: The drugs N-Acetylcysteine and Metamizole may falsely depress this assay. Reference Range HDL <40 mg/dL Low HDL Cholesterol HDL >or= 60 mg/dL High HDL Cholesterol Performed By: #### L 501.9910, L500.4100, L100.0100, L500.4050, L501.9520 #### [facility] [address] [place], [address] Cholesterol in LDL [Mass/Vol] 80 mg/dL Normal 0-130 [facility] Comment on above: Performed By: #### L 501.9910, L500.4100, L100.0100, L500.4050, L501.9520 #### [facility] [address] [place], [address] Cholesterol in VLDL [Mass/Vol] 15 mg/dL Normal 5-40 [facility] Comment on above: Performed By: #### L 501.9910, L500.4100, L100.0100, L500.4050, L501.9520 #### [facility] [address] [place], [address] Triglyceride [Mass/Vol] 77 mg/dL Normal [facility] Comment on above: Result Comment: The drugs N-Acetylcysteine and Metamizole may falsely depress this assay. Serum Triglycerides Reference Interval Normal <150 mg/dL Borderline high 150 - 199 mg/dL High 200 - 499 mg/dL Very High > or = 500 mg/dL Performed By: #### L 501.9910, L500.4100, L100.0100, L500.4050, L501.9520 #### [facility] [address] [place], [address] PSA,Total - Annual Screenon 09-08-2024 PSA,TOT SCREEN 0.57 ng/mL Normal 0.00-4.00 [facility] Comment on above: Result Comment: This test was performed using the TPSA assay method for the [employer] chemistry system. Values obtained with different assay methods cannot be used interchangably. When changing PSA assays in the course of monitoring a patient, additional sequential testing should be carried out to confirm baseline values. Performed By: #### L 501.9910, L500.4100, L100.0100, L500.4050, L501.9520 #### [facility] [address] [place], [address] Thyroid Stim Hormone (TSH)on 09-08-2024 TSH 1.310 uIU/mL Normal 0.358-3.740 [facility] Comment on above: Performed By: #### L 501.9910, L500.4100, L100.0100, L500.4050, L501.9520 #### [facility] [address] [place], [address] Office Visit Reporton 2023 Office Visit Report [facility] [address] [place] [address] OFFICE VISIT Date of Service: 08/02/24 MR#: [id number] Acct: [id number] Patient: ROMAN BETTS Rep #: [id number] : 1970 Provider: PO NURSE Age/Sex: 53/M Location: [facility] Status: Signed Intake Vital Signs 03/12/24 15:03 08/02/24 15:35 Height 5 ft 11 in 5 ft 11 in Weight: 219 lb BMI 30.5 BP 128/76 H Blood Pressure Location Lt brachial Position Sitting Respiration 17 Pulse 90 Pulse Source Monitor Temp 96.8 F L Temp Source Temporal Pulse Oximetry (%) 97 Oxygen Delivery Method room air Intake Visit Reasons: flu shot Chief Complaint: flu shot Allergies Sulfa (Sulfonamide Antibiotics) Adverse Reaction (Mild, Verified 03/12/24 15:00) Rash Immunizations Flucelvax Triv (PF) 45 mcg (15 mcg x 3)/0.5 mL IM syringe Performing Provider: Candelario Hawkins MD Performing Location: [facility] Administered by: Priyanka Baldwin MA on 08/02/24 15:46 Dose Route Admin Location Dispensed Lot Number Expiration Date [facility] Man ufacturer 0.5 mL IM Right Deltoid 0.5 mL [id number] 01/26/25 [id number] [employer], [employer]. VIS Given Date VIS Provided VIS Publication Date 08/02/24 Single Vaccine 24 Eligibility Eligibility Date Funding Source Not Applicable Assessment and Plan Assessment and Plan (1) Flu vaccine need: Status: Acute Orders: Orders Influenza Immunization Today Z23 - Encounter for immunization 08/02/24 1703 Date Candelario Love Signature: Date (if applicable) CC: [facility] 06-09-2024 [facility] Telephone ([facility] [[email or web address] ROMAN BETTS ([id number]) 1970 M Date Time Provider Department 06/09/24 JESUS ORDONEZ [facility] [[email or web address]] During your visit today, we recorded the following information about you: Jesus Ordonez APRN.[facility] 06/09/2024 6:32 PM Signed Please notify that the urine culture showed no infection. If symptoms persist/worsen f/u with primary care. Mckenna Cooney LPN 06/10/2024 8:27 AM Signed Left message for patient to return call. OSEI Aviles Lori, LPN 06/10/2024 8:50 AM Signed Pit notified of results AND message from provider, pt voiced understanding. OSEI Acosta Lori, LPN 06/10/2024 9:00 AM Signed Pt requested records from [facility] 06/08/24 be faxed to his pcp Dr Candelario Hawkins. Faxed to [phone] as requested. Diana Hill LPN Allergies As of Date: 06/09/2024 Noted Allergy Reaction SULFUR DIOXIDE 11/11/2019 2 - Rash Date Reviewed: 06/08/2024 Reviewed by: Monica Tinajero LPN - Fully Assessed Reason for Visit: Results [95] Prescriptions as of 06/10/2024 - amLODIPine (NORVASC) 5 mg tablet Take 1 tablet by mouth once daily. - famotidine (PEPCID) 20 mg tablet Take 1 tablet by mouth once daily as needed. - SYNTHROID 150 mcg tablet Take 1 tablet by mouth every morning. - omeprazole (PRILOSEC) 40 mg capsule - nystatin (MYCOSTATIN) cream Apply 1 application to affected area three times a day for 7 days. Problem List As Of Date: 06/09/2024 (None) Encounter Status:Closed by DIANA HILL on 06/10/24 Normal [facility] Bacteria Ur Culton 4 Bacteria identified Cx Nom (U) CULTURE, URINE: No growth (<1,000 CFU/ml) Normal [facility] Comment on above: Performed By: #### 6 30-4 #### [facility] CLIA [id number] [address] [place] [address] [place] CNOVon 06-08-2024 CNOV Office Visit ([facility]WSTR) ROMAN BETTS ([id number]) 1970 M Date Time Provider Department 06/08/24 1:30 PM JESUS ORDONEZ During your visit today, we recorded the following information about you: Temperature Pulse Respiration Blood pressure 98.1 degrees 80/minute 16/minute 138/84 Weight 99.6 kg Jesus Ordonez APRN.[employer] 06/08/2024 4:31 PM Signed Subjective HPI HPI Roman Betts is a 53 year old male who presents today for CC of penile itching, perineal itching, rectal itching. This started 2 days ago. Has tried nothing for relief. Symptoms are worsened by nothing. Risk factors is warm/sweaty at job. Denies concerns for std. Denies testicular pain. .Patient presents with: burning with urination: Itching/burning with urination and rectal itching x 2 days History reviewed. No pertinent past medical history. No past surgical history on file. ALLERGIES Sulfur Dioxide MEDICATIONS amLODIPine (NORVASC) 5 mg tablet Take 1 tablet by mouth once daily. famotidine (PEPCID) 20 mg tablet Take 1 tablet by mouth once daily as needed. SYNTHROID 150 mcg tablet Take 1 tablet by mouth every morning. omeprazole (PRILOSEC) 40 mg capsule No family history on file. Social History Tobacco Use Smoking status: Never Smokeless tobacco: Current Review of Systems Constitutional: Negative for chills, fever and weight loss. Respiratory: Negative for cough, shortness of breath and wheezing. Cardiovascular: Negative for chest pain and palpitations. Gastrointestinal: Negative for abdominal pain, blood in stool, constipation, diarrhea, heartburn, melena, nausea and vomiting. Genitourinary: Positive for dysuria. Negative for flank pain, frequency, hematuria and urgency. Objective Blood pressure 138/84, pulse 80, temperature 36.7 ?C (98.1 ?F), temperature source Tympanic, resp. rate 16, weight 99.6 kg (219 lb 9.3 oz), SpO2 98%. 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 Constitutional: General: He is not in acute distress. Appearance: Normal appearance. He is not toxic-appearing. Cardiovascular: Rate and Rhythm: Normal rate and regular rhythm. Heart sounds: Normal heart sounds. Pulmonary: Effort: Pulmonary effort is normal. Breath sounds: Normal breath sounds. Abdominal: General: Bowel sounds are normal. Palpations: Abdomen is soft. Tenderness: There is no abdominal tenderness. Genitourinary: Comments: Light erythema on penis, and rectal area. No vesicles or exudates. Skin: General: Skin is warm and dry. ASSESSMENT/PLAN: 1. Intertrigo - ICD9: 695.89, ICD10: L30.4 (primary diagnosis) -use medication as prescribed -follow up if symptoms persist, worsen, change - NYSTATIN 100,000 UNIT/GRAM TOPICAL CREAM 2. Burning with urination - ICD9: 788.1, ICD10: R30.0 Ua negative, send for culture No medication today. Treat per result. - UA DIP, URINE (POC) - URINE CULTURE Jesus Ordonez APRN.[employer] Allergies As of Date: 06/08/2024 Noted Allergy Reaction SULFUR DIOXIDE 11/11/2019 2 - Rash Date Reviewed: 06/08/2024 Reviewed by: Monica Tinajero LPN - Fully Assessed Reason for Visit: burning with urination [Other] Cmt: Itching/burning with urination and rectal itching x 2 days Primary Visit Diagnosis:Intertrigo [L30.4] Other Visit Diagnosis:Burning with urination [R30.0] Order(s):UA DIP, URINE (POC) [[id number]] Order #: [id number]. #:[id number] URINE CULTURE [SQURCUL] Order #: [id number]. #:[id number] nystatin (MYCOSTATIN) creamApply 1 application to affected area three times a day for 7 days.Disp: 30 gRfl: 3 Prescriptions as of 06/08/2024 - amLODIPine (NORVASC) 5 mg tablet Take 1 tablet by mouth once daily. - famotidine (PEPCID) 20 mg tablet Take 1 tablet by mouth once daily as needed. - SYNTHROID 150 mcg tablet Take 1 tablet by mouth every morning. - omeprazole (PRILOSEC) 40 mg capsule - nystatin (MYCOSTATIN) cream Apply 1 application to affected area three times a day for 7 days. Problem List As Of Date: 06/08/2024 (None) Prescriptions ordered this encounter Disp Refills Start End NYSTATIN 100,000 UNIT/GRAM TOPICAL C* 30 g 3 06/08/2024 06/15/2024 Route: TOPICAL Sig: Apply 1 application to affected area three times a day for 7 days. Encounter Status:Closed by JESUS ORDONEZ on 06/08/24 Normal [facility] UA DIP, URINE (POC)on 2023 BILIRUBIN UA (POCT) Negative Negative [facility] CLARITY UA (POCT) Clear [facility] COLOR UA (POCT) Yellow [facility] GLUCOSE UA (POCT) Negative Negative mg/dL [facility] Hemoglobin Ql (U) Negative Negative [facility] KETONE UA (POCT) Negative Negative mg/dL [facility] LEUKOCYTES UA (POCT) Negative Negative [facility] NITRITE UA (POCT) Negative Negative [facility] PH UA (POCT) 6.5 4.5 - 8.0 [facility] Protein Ql (U) Negative Negative mg/dL [facility] SPECIFIC GRAVITY UA (POCT) 1.010 1.005 - 1.030 [facility] UROBILINOGEN UA (POCT) 0.2 Louisa l E.U./dL [facility] Location:[facility], [address] [place] [address], [place], [place], [id number] [place] [address] POINT OF CARE [facility] Absolute lymphocyte countOrd ered By: Candelario Hawkins on 09-12-2023 Lymphocytes Auto (Unsp spec) [#/Vol] 1.68 10*3/uL 0.83-4.51 [facility] Basophil percentageOrdered B y: Candelario Hawkins on 09-12-2023 Amylase [Catalytic activity/Vol] 39 U/L 25-115 [facility] Basophils/100 WBC (Bld) 0.8 % 0-1 [facility] Bilirubin [Mass/Vol] 1.00 mg/dL 0.20-1.00 [facility] Comment on above: For patients on eltr ombopag therapy, use of Dimension [place] TBIL is not recommended. Chloride [Moles/Vol] 106 mmol/L 98-107 [facility] Cholesterol [Mass/Vol] 144 mg/dL <200 [facility] Comment on above: <200 mg/dL Desirable 200-240 mg/dL Borderline >240 mg/dL High Risk Eosinophils/100 WBC (Bld) 1.0 % 0-5 [facility] Glucose [Mass/Vol] 102 mg/dL 74-106 [facility] Comment on above: Fasting Glucose resu lt from 100 to 125 mg/dL suggests IMPAIRED HOMEOSTASIS per A.D.A. criteria. Neutrophils (Bld) [#/Vol] 5.3 10*3/uL 2.0-7.7 [facility] Neutrophils/100 WBC (Bld) 68.7 % 47-70 [facility] Potassium [Moles/Vol] 4.1 mmol/L 3.5-5.1 [facility] Protein [Mass/Vol] 8.0 g/dL 6.4-8.2 [facility] Sodium [Moles/Vol] 139 mmol/L 136-145 [facility] Triglyceride [Mass/Vol] 69 mg/dL <199 [facility] Comment on above: The drugs N-Acetylcy steine and Metamizole may falsely depress this assay.Serum Triglycerides Reference Interval Normal <150 mg/dL Borderline high 150 - 199 mg/dL High 200 - 499 mg/dL Very High > or = 500 mg/dL WBC (Bld) [#/Vol] 7.8 10*3/uL 4.4-11.0 [facility] Blood erythrocytes count (nu mber/volume)Ordered By: Candelario Hawkins on 09-12-2023 RBC (Bld) [#/Vol] 5.05 10*6/uL 4.6-6.2 [facility] Blood hemoglobin measurement (mass/volume)Ordered By: Candelario Hawkins on 09-12-2023 Hemoglobin (Bld) [Mass/Vol] 15.2 g/dL 13.0-16.5 [facility] Blood lymphocytes/100 leukoc ytesOrdered By: Candelario Hawkins on 09-12-2023 Lymphocytes/100 WBC (Bld) 21.6 % 19-41 [facility] Blood monocytes/100 leukocyt esOrdered By: Candelario Hawkins on 09-12-2023 Monocytes/100 WBC (Bld) 7.6 % 0-10 [facility] Blood platelet mean volumeOr dered By: Candelario Hawkins on 09-12-2023 Platelet mean volume (Bld) [Entitic vol] 10.5 fL 6.2-12.0 [facility] Determination of erythrocyte mean corpuscular volume (MCV)Ordered By: Candelario Hawkins on 09-12-2023 MCV (RBC) [Entitic vol] 92.5 fL 80-94 [facility] Hematocrit Auto (Bld) [Volum e fraction]Ordered By: Candelario Hawkins on 09-12-2023 Hematocrit (Bld) [Volume fraction] 46.7 % 40-54 [facility] Laboratory - Chemistry and C hemistry - challengeOrdered By: Candelario Hawkins on 09-12-2023 ALP [Catalytic activity/Vol] 60 U/L 45-117 [facility] ALT [Catalytic activity/Vol] 51 U/L 16-61 [facility] CO2 [Moles/Vol] 26.0 mmol/L 21.0-32.0 [facility] Globulin (S) [Mass/Vol] 3.5 g/dL 2.2-4.2 [facility] Lipase [Catalytic activity/Vol] 28 U/L 13-75 [facility] Comment on above: Please note:LIPASE r evised reference range effective 22. New Lipase methodology. Expected to produce lower values than the previous assay method. NEW Reference Range: 13 - 75 U/L Urea nitrogen/Creatinine [Mass ratio] 14.2 mg/mg 10-20 [facility] - Hematology and Cell countsOrdered By: Candelario Hawkins on 09-12-2023 Erythrocyte distribution width (RBC) [Entitic vol] 40.6 fL 35.1-43.9 [facility] Erythrocyte distribution width (RBC) [Ratio] 11.9 % 11.6-14.6 [facility] Immature granulocytes/100 WBC (Bld) 0.300 % 0.0-0.9 [facility] Comment on above: IG% - Immature Granu locytes (promyelocytes, myelocytes and metamyelocytes) > 1% indicates that a LEFT SHIFT is Present. MCH (RBC) [Entitic mass] 30.1 pg 27.0-32.0 [facility] Nucleated RBC/100 WBC (Bld) [Ratio] 0 % 0-5 [facility] - Microbiology an d Antimicrobial susceptibilityOrdered By: Candelario Hawkins on 09-12-2023 SARS-CoV-2 (COVID-19) RNA SHELBY+probe Ql (Unsp spec) [facility] MCHC Auto (RBC) [Mass/Vol]Or dered By: Candelario Hawkins on 09-12-2023 MCHC (RBC) [Mass/Vol] 32.5 g/dL 32-36 [facility] No Panel Informationon 09-12 Influenza Types A,B Rapid (Clinic) Negative [facility] No Panel InformationOrdered By: Candelario Hawkins on 09-12-2023 Estimated GFR (MDRD) Amer 88 mL/min >60 [facility] Comment on above: GFR Calc Estimated GFR (MDRD) Non-Af Amer 72 mL/min >60 [facility] Comment on above: Non- GFR Calc Thyroid Stimulating Hormone (TSH) 0.49 uIU/mL 0.358-3.74 [facility] Platelets bldOrdered By: Tru Hawkins on 09-12-2023 Platelets (Bld) [#/Vol] 261 10*3/uL 150-450 [facility] Serum or plasma albumin serenity urement (mass/volume)Ordered By: Candelario Hawkins on 09-12-2023 Albumin [Mass/Vol] 4.5 g/dL 3.2-5.0 [facility] Serum or plasma albumin/glob ulin mass ratioOrdered By: Candelario Hawkins on 09-12-2023 Albumin/Globulin [Mass ratio] 1.3 {ratio} 0.9-2.4 [facility] Serum or plasma calcium serenity urement (mass/volume)Ordered By: Candelario Hawkins on 09-12-2023 Calcium [Mass/Vol] 9.4 mg/dL 8.5-10.1 [facility] Serum or plasma cholesterol in HDL measurement (mass/volume)Ordered By: Candelario Hawkins on 09-12-2023 Cholesterol in HDL [Mass/Vol] 48 mg/dL >40 [facility] Comment on above: The drugs N-Acetylcy steine and Metamizole may falsely depress this assay. Reference Range HDL <40 mg/dL Low HDL Cholesterol HDL >or= 60 mg/dL High HDL Cholesterol Serum or plasma cholesterol in VLDL measurement (mass/volume)Ordered By: Candelario Hawkins on 09-12-2023 Cholesterol in VLDL [Mass/Vol] 14 mg/dL 5-40 [facility] Serum or plasma creatinine m easurement (mass/volume)Ordered By: Candelario Hawkins on 09-12-2023 Creatinine [Mass/Vol] 1.13 mg/dL 0.70-1.30 [facility] Comment on above: The validity of the calculated GFR & GFRAA in patients over 70 years has not been determined. Clinical correlation is essential. Serum or plasma low density lipoprotein (LDL) cholesterol measurement (mass/volume)Ordered By: Candelario Hawkins on 09-12-2023 Cholesterol in LDL [Mass/Vol] 82 mg/dL 0-130 [facility] Serum or plasma urea nitroge n measurement (mass/volume)Ordered By: Candelario Hawkins on 09-12-2023 Urea nitrogen [Mass/Vol] 16 mg/dL 7-18 [facility] Thin prep Papanicolaou smear with manual screeningOrdered By: Alexandrawheatlandroger Hawkins on 09-12-2023 Thin prep Papanicolaou smear with manual screening 26 U/L 15-37 [facility] Thin prep Papanicolaou smear with manual screening 7 5-15 [facility] Absolute lymphocyte counton 04-12-2022 Lymphocytes Auto (Unsp spec) [#/Vol] 2.01 10*3/uL 0.83-4.51 [facility] Work Phone: Basophil percentageon 2021 Basophils/100 WBC (Bld) 0.6 % 0-1 [facility] Work Phone: Bilirubin [Mass/Vol] 0.60 mg/dL 0.20-1.00 [facility] Work Phone: Comment on above: For patients on eltr ombopag therapy, use of Dimension [place] TBIL is not recommended. Chloride [Moles/Vol] 109 mmol/L 98-107 [facility] Work Phone: Cholesterol [Mass/Vol] 160 mg/dL <200 [facility] Work Phone: Comment on above: <200 mg/dL Desirable 200-240 mg/dL Borderline >240 mg/dL High Risk Eosinophils/100 WBC (Bld) 2.1 % 0-5 [facility] Work Phone: Glucose [Mass/Vol] 102 mg/dL 74-106 [facility] Work Phone: Comment on above: Fasting Glucose resu lt from 100 to 125 mg/dL suggests IMPAIRED HOMEOSTASIS per A.D.A. criteria. Neutrophils (Bld) [#/Vol] 4.3 10*3/uL 2.0-7.7 [facility] Work Phone: Neutrophils/100 WBC (Bld) 60.1 % 47-70 [facility] Work Phone: Potassium [Moles/Vol] 3.9 mmol/L 3.5-5.1 [facility] Work Phone: Protein [Mass/Vol] 7.7 g/dL 6.4-8.2 [facility] Work Phone: Sodium [Moles/Vol] 141 mmol/L 136-145 [facility] Work Phone: Triglyceride [Mass/Vol] 114 mg/dL <199 [facility] Work Phone: Comment on above: The drugs N-Acetylcy steine and Metamizole may falsely depress this assay.Serum Triglycerides Reference Interval Normal <150 mg/dL Borderline high 150 - 199 mg/dL High 200 - 499 mg/dL Very High > or = 500 mg/dL WBC (Bld) [#/Vol] 7.2 10*3/uL 4.4-11.0 [facility] Work Phone: Blood erythrocytes count (nu mber/volume)on 04-12-2022 RBC (Bld) [#/Vol] 4.81 10*6/uL 4.6-6.2 [facility] Work Phone: Blood hemoglobin measurement (mass/volume)on 04-12-2022 Hemoglobin (Bld) [Mass/Vol] 14.8 g/dL 13.0-16.5 [facility] Work Phone: Blood lymphocytes/100 leukoc yteson 04-12-2022 Lymphocytes/100 WBC (Bld) 28.1 % 19-41 [facility] Work Phone: Blood monocytes/100 leukocyt eson 04-12-2022 Monocytes/100 WBC (Bld) 8.7 % 0-10 [facility] Work Phone: Blood platelet mean volumeon 04-12-2022 Platelet mean volume (Bld) [Entitic vol] 10.7 fL 6.2-12.0 [facility] Work Phone: Determination of erythrocyte mean corpuscular volume (MCV)on 04-12-2022 MCV (RBC) [Entitic vol] 92.5 fL 80-94 [facility] Work Phone: Hematocrit Auto (Bld) [Volum e fraction]on 04-12-2022 Hematocrit (Bld) [Volume fraction] 44.5 % 40-54 [facility] Work Phone: Laboratory - Chemistry and C hemistry - challengeon 04-12-2022 ALP [Catalytic activity/Vol] 48 U/L 45-117 [facility] Work Phone: ALT [Catalytic activity/Vol] 49 U/L 16-61 [facility] Work Phone: CO2 [Moles/Vol] 25.0 mmol/L 21.0-32.0 [facility] Work Phone: Globulin (S) [Mass/Vol] 3.4 g/dL 2.2-4.2 [facility] Work Phone: Urea nitrogen/Creatinine [Mass ratio] 12.7 mg/mg 10-20 [facility] Work Phone: Laboratory - Hematology and Cell countson 04-12-2022 Erythrocyte distribution width (RBC) [Entitic vol] 41.4 fL 35.1-43.9 [facility]: Erythrocyte distribution width (RBC) [Ratio] 12.2 % 11.6-14.6 [facility] Work Phone: Immature granulocytes/100 WBC (Bld) 0.400 % 0.0-0.9 [facility] Work Phone: Comment on above: IG% - Immature Granu locytes (promyelocytes, myelocytes and metamyelocytes) > 1% indicates that a LEFT SHIFT is Present. MCH (RBC) [Entitic mass] 30.8 pg 27.0-32.0 [facility] Work Phone: Nucleated RBC/100 WBC (Bld) [Ratio] 0 % 0-5 [facility] Work Phone: MCHC Auto (RBC) [Mass/Vol]on 04-12-2022 MCHC (RBC) [Mass/Vol] 33.3 g/dL 32-36 [facility] Work Phone: No Panel Informationon 04-12 Estimated GFR (MDRD) Amer 68 mL/min >60 [facility] Work Phone: Comment on above: GFR Calc Estimated GFR (MDRD) Non-Af Amer 56 mL/min >60 [facility] Work Phone: Comment on above: Non- GFR Calc Thyroid Stimulating Hormone (TSH) 3.88 uIU/mL 0.358-3.74 [facility] Work Phone: Platelets bldon 04-12-2022 Platelets (Bld) [#/Vol] 241 10*3/uL 150-450 [facility] Work Phone: Serum or plasma albumin serenity urement (mass/volume)on 04-12-2022 Albumin [Mass/Vol] 4.3 g/dL 3.2-5.0 [facility] Work Phone: Serum or plasma albumin/glob ulin mass ratioon 04-12-2022 Albumin/Globulin [Mass ratio] 1.3 {ratio} 0.9-2.4 [facility] Work Phone: Serum or plasma calcium serenity urement (mass/volume)on 04-12-2022 Calcium [Mass/Vol] 9.0 mg/dL 8.5-10.1 [facility] Work Phone: Serum or plasma cholesterol in HDL measurement (mass/volume)on 04-12-2022 Cholesterol in HDL [Mass/Vol] 51 mg/dL >40 [facility] Work Phone: Comment on above: The drugs N-Acetylcy steine and Metamizole may falsely depress this assay. Reference Range HDL <40 mg/dL Low HDL Cholesterol HDL >or= 60 mg/dL High HDL Cholesterol Serum or plasma cholesterol in VLDL measurement (mass/volume)on 04-12-2022 Cholesterol in VLDL [Mass/Vol] 23 mg/dL 5-40 [facility] Work Phone: Serum or plasma creatinine m easurement (mass/volume)on 04-12-2022 Creatinine [Mass/Vol] 1.42 mg/dL 0.70-1.30 [facility] Work Phone: Comment on above: The validity of the calculated GFR & GFRAA in patients over 70 years has not been determined. Clinical correlation is essential. Serum or plasma low density lipoprotein (LDL) cholesterol measurement (mass/volume)on 04-12-2022 Cholesterol in LDL [Mass/Vol] 86 mg/dL 0-130 [facility] Work Phone: Serum or plasma urea nitroge n measurement (mass/volume)on 04-12-2022 Urea nitrogen [Mass/Vol] 18 mg/dL 7-18 [facility] Work Phone: Thin prep Papanicolaou smear with manual screeningon 04-12-2022 Thin prep Papanicolaou smear with manual screening 23 U/L 15-37 [facility] Work Phone: Thin prep Papanicolaou smear with manual screening 7 5-15 [facility] Work Phone: TH CT CARDIAC SCORINGon 03-0 CT CARDIAC SCORING Patient Name: ROMAN BETTS STUDY: CT CARDIAC SCORING; 11/05/2019 1:01 pm INDICATION: FAMILY HX OF HEART DISEASE. COMPARISON: None. ACCESSION NUMBER(S): [id number] ORDERING CLINICIAN: Candelario Hawkins TECHNIQUE: Using prospective ECG gating, CT scan of the coronary arteries was performed without intravenous contrast. Coronary calcium scoring was performed according to the method of Agatston. FINDINGS: The score and distribution of calcium in the coronary arteries is as follows: LM 0 LAD 0 LCx 0 RCA 0 Total 0 The visualized mid/lower ascending thoracic aorta measures 3.7 cm in diameter. The heart is normal in size. No pericardial effusion is present. No gross evidence of mediastinal or hilar lymphadenopathy or masses is identified. The visualized segments of the lungs are normally expanded. A small bulla is present, in the left lower lobe The visualized subdiaphragmatic structures appear intact. IMPRESSION: 1. Coronary artery calcium score of 0*. *Coronary artery calcium scoring may be helpful in predicting the risk for future coronary heart disease events. According to the [employer] Clinical Expert Consensus Task Force, such testing provides important prognostic information in patients with more than one coronary heart disease risk factor. The coronary artery calcium score correlates with the annual risk of a non-fatal myocardial infarction or coronary heart disease . Coronary artery score Annual Risk 0-99 0.4% 100-399 1.3% >400 2.4% These three breakpoints correspond to lower, intermediate and high risk states for future coronary events. Such information should be used, along with appropriate clinical judgment, to make decisions regarding the intensity of risk factor management strategies to treat blood lipids and to modify other non-lipid coronary risk factors. Reference: Beaver P et al. Circulation. 2007; 115:402-426 Electronically signed by: KEON MASTERSON MD [facility] XR SHOULDER MINIMUM 2 VIEWS RIGHTon 06-15-2018 XR SHOULDER MINIMUM 2 VIEWS RIGHT ORIGINALRIGHT shoulder 4 views HISTORY: Pain COMPARISON: None There are minor degenerative changes present at the AC joint. There is some calcific density at the superolateral humeral head. This is compatible with prominent rotator cuff calcific tendinopathy. There is no fracture, dislocation or other acute findings seen. Interpreted By: Xu Bowlesreliminary Report By: Xu Bowles MDElectronically Signed By: Xu Bowles MD Dictated Date: 06/15/2018 10:09:52 AM Prelim Date: 06/15/2018 10:09:52 AM Sign Date: 06/15/2018 10:10:20 AM Normal [facility] ([place]) Comp. Metabolic Panelon 07-0 Chloride 106 mmol/L Normal 98-107 [facility] Comment on above: Performed By: #### C MP ####[address] [address] Electrolyte Balance 10.0 mEq/L Normal [facility] Comment on above: Performed By: #### C MP ####[place] [address] [address] Potassium molar conc 4.2 mmol/L Normal 3.5-5.1 [facility] Comment on above: Performed By: #### C MP ####[place] [address] [address] Sodium 139 mmol/L Normal 136-146 [facility] Comment on above: Performed By: #### C MP ####[address] [address] Aspartate aminotransferase (AST) 32 U/L Normal 10-40 [facility] Comment on above: Performed By: #### C MP ####[address] [address] Alanine aminotransferase (ALT) 55 U/L High 10-35 [facility] Comment on above: Performed By: #### C MP ####[address] [address] Alk. Phosphatase 49 IU/L Normal 40-135 [facility] Comment on above: Performed By: #### C MP ####[place] [address] [address] [address] Glucose mass conc 126 mg/dL High 70-105 [facility] Comment on above: Performed By: #### C MP ####[address] [address] Albumin/Globulin Ratio 2.0 {ratio} Normal 1.1-2.5 Count includes the [facility] Comment on above: Performed By: #### C MP ####[address] [address] Bilirubin (direct) 0.3 mg/dL Normal 0.2-1.0 [facility] Comment on above: Performed By: #### C MP ####[place] [id number] Globulin 2.3 G/dL Normal [facility] Comment on above: Performed By: #### C MP ####[place] [id number] T. Protein 6.8 G/dL Normal 6.0-8.3 [facility] Comment on above: Performed By: #### C MP ####[place] [id number] BUN/Creatinine Ratio 17 mg/mg Normal 7-27 [facility] Comment on above: Performed By: #### C MP ####[place] [id number] Creatinine 1.2 mg/dL Normal 0.6-1.2 [facility] Comment on above: Performed By: #### C MP ####[place] [id number] Albumin 4.5 G/dL Normal 3.5-5.0 [facility] Comment on above: Performed By: #### C MP ####[place] [id number] Calcium 8.9 mg/dL Normal 8.4-10.2 [facility] Comment on above: Performed By: #### C MP ####[place] [id number] CO2 23 mmol/L Normal 22-29 [facility] Comment on above: Performed By: #### C MP ####[place] [id number] Urea nitrogen 20 mg/dL High 7-18 [facility] Comment on above: Performed By: #### C MP ####[place] [address] [address] Free T4on 03-01-2017 Thyroxine (T4) free 1.2 ng/mL Normal 0.6-1.7 [facility] Comment on above: Performed By: #### F T4 ####[place] [address] [address] Glomerular Filtration Rate E stimateon 03-01-2017 eGFR (non-black) mL/min/{1.73_m2} Normal [facility] Comment on above: Result Comment: Jim valenzuela mean GFR = 99 mL/min/1.73 sq.m. for ages 40-49 years. Chronic Kidney Disease: Less than 60 mL/min/1.73 square metersEnd Stage Renal Disease: Less than 15 mL/min/1.73 square meters Performed By: #### G FR ####[place] [address] [address] HDL Cholesterol Profileon Cholesterol 171 mg/dL Normal 131-200 [facility] Comment on above: Result Comment: Chol esterol Reference Interval: Less than 200 Desirable 200-239 Borderline high risk 240 and above High risk -------- Performed By: #### L IPID ####[place] [address] [address] HDL Cholesterol 37 mg/dL Normal 35-90 [facility] Comment on above: Result Comment: HDL Reference Interval: Less than 40 Low - high risk 60 or above Optimal/lowers risk -------- Performed By: #### L IPID ####[place] [address] [address] LDL Cholesterol 98 mg/dL Normal 0-130 [facility] Comment on above: Result Comment: LDL is a calculated result and requires a 12-hr fast. LDL Reference Interval: Less than 100 Optimal 100-129 Near or above optimal 130-159 Borderline high risk 160-189 High risk 190 and above Very high risk --------- Performed By: #### L IPID ####[address] [address] Triglyceride 179 mg/dL High 40-150 [facility] Comment on above: Result Comment: Trig lyceride Reference Interval: Less than 150 Normal 150-199 Borderline high risk 200-499 High risk 500 or higher Very high risk -------- Performed By: #### L IPID ####[place] [address] [address] TSHon 03-01-2017 Thyroid stimulating hormone (TSH) 4.54 mcIU/mL High 0.27-4.20 [facility] Comment on above: Performed By: #### T SH ####[place] [address] [address] Vital Signs Date Time Vital Sign Value Performing Clinician Facility 05-24-2025 07:35-0400 Body height 180.[address] Candelario Hawkins MD Work Phone: [facility] 05-24-2025 07:35-0400 Body mass index (BMI) [Ratio] 31.6 kg/m2 Dr. Candelario Hawkins MD Work Phone: [facility] 05-24-2025 07:35-0400 Body temperature 97.7 [degF] Dr. Candelario Hawkins MD Work Phone: [facility] 05-24-2025 07:35-0400 Body weight 102.[address] Candelario Hawkins MD Work Phone: [facility] 05-24-2025 07:35-0400 Diastolic blood pressure 90 mm[Hg] Dr. Candelario Hawkins MD Work Phone: [facility] 05-24-2025 07:35-0400 Heart rate 76 /min Dr. Candelario Hawkins MD Work Phone: [facility] 05-24-2025 07:35-0400 Respiratory rate 16 /min Dr. Candelario Hawkins MD Work Phone: [facility] 05-24-2025 07:35-0400 SaO2% (BldA) [Mass fraction] 97 % Dr. Candelario Hawkins MD Work Phone: [facility] 05-24-2025 07:35-0400 Systolic blood pressure 144 mm[Hg] Dr. Candelario Hawkins MD Work Phone: [facility] 03-09-2025 15:01-0400 Body height 180.[address] Candelario Hawkins MD Work Phone: [facility] 03-09-2025 15:01-0400 Body mass index (BMI) [Ratio] 30.9 kg/m2 Dr. Candelario Hawkins MD Work Phone: [facility] 03-09-2025 15:01-0400 Body temperature 97.8 [degF] Dr. Candelario Hawkins MD Work Phone: [facility] 03-09-2025 15:01-0400 Body weight 100.[address] Candelario Hawkins MD Work Phone: [facility] 03-09-2025 15:01-0400 Diastolic blood pressure 70 mm[Hg] Dr. Candelario Hawkins MD Work Phone: [facility] 03-09-2025 15:01-0400 Heart rate 82 /min Dr. Candelario Hawkins MD Work Phone: [facility] 03-09-2025 15:01-0400 Respiratory rate 18 /min Dr. Candelario Hawkins MD Work Phone: [facility] 03-09-2025 15:01-0400 SaO2% (BldA) [Mass fraction] 97 % Dr. Candelario Hawkins MD Work Phone: [facility] 03-09-2025 15:01-0400 Systolic blood pressure 128 mm[Hg] Dr. Candelario Hawkins MD Work Phone: [facility] 01-26-2025 13:31-0400 Body height 180.[address] Candelario Hawkins MD Work Phone: [facility] 01-26-2025 13:31-0400 Body mass index (BMI) [Ratio] 30.7 kg/m2 Dr. Candelario Hawkins MD Work Phone: [facility] 01-26-2025 13:31-0400 Body temperature 99 [degF] Dr. Candelario Hawkins MD Work Phone: [facility] 01-26-2025 13:31-0400 Body weight 99.[address] Candelario Hawkins MD Work Phone: [facility] 01-26-2025 13:31-0400 Diastolic blood pressure 90 mm[Hg] Dr. Candelario Hawkins MD Work Phone: [facility] 01-26-2025 13:31-0400 Heart rate 88 /min Dr. Candelario Hawkins MD Work Phone: [facility] 01-26-2025 13:31-0400 Respiratory rate 16 /min Dr. Candelario Hawkins MD Work Phone: [facility] 01-26-2025 13:31-0400 SaO2% (BldA) [Mass fraction] 99 % Dr. Candelario Hawkins MD Work Phone: [facility] 01-26-2025 13:31-0400 Systolic blood pressure 130 mm[Hg] Dr. Candelario Hawkins MD Work Phone: [facility] 01-11-2025 19:29-0400 Body temperature 99.61 [degF] Roxanne Anderson APRN.MECHANICAL ASSEMBLY Work Phone: [facility] 01-11-2025 19:29-0400 Body weight 100 kg Roxanne Anderson APRN.MECHANICAL ASSEMBLY Work Phone: [facility] 01-11-2025 19:29-0400 Diastolic blood pressure 81 mm[Hg] Roxanne Anderson APRN.MECHANICAL ASSEMBLY Work Phone: [facility] 01-11-2025 19:29-0400 Heart rate 98 /min Roxanne Anderson APRN.[employer]CHANICAL ASSEMBLY Work Phone: [facility] 01-11-2025 19:29-0400 Respiratory rate 22 /min Roxanne Anderson APRN.MECHANICAL ASSEMBLY Work Phone: [facility] 01-11-2025 19:29-0400 SaO2% (BldA) [Mass fraction] 97 % Roxanne Anderson APRN.MECHANICAL ASSEMBLY Work Phone: [facility] 01-11-2025 19:29-0400 Systolic blood pressure 112 mm[Hg] Roxanne Anderson APRN.MECHANICAL ASSEMBLY Work Phone: [facility] 11-28-2024 09:15-0400 Body temperature 98.2 [degF] Zakiya Clutter PA-C Work Phone: [facility] 11-28-2024 09:15-0400 Body weight 99.6 kg Zakiya Clutter PA-C Work Phone: [facility] 11-28-2024 09:15-0400 Diastolic blood pressure 80 mm[Hg] Zakiya Clutter PA-C Work Phone: [facility] 11-28-2024 09:15-0400 Heart rate 63 /min Zakiya Clutter PA-C Work Phone: [facility] 11-28-2024 09:15-0400 Respiratory rate 16 /min Zakiya Clutter PA-C Work Phone: [facility] 11-28-2024 09:15-0400 SaO2% (BldA) [Mass fraction] 95 % Zakiya Clutter PA-C Work Phone: [facility] 11-28-2024 09:15-0400 Systolic blood pressure 128 mm[Hg] Zakiya Clutter PA-C Work Phone: [facility] 06-08-2024 13:29-0400 Body temperature 98.1 [degF] Jesus José Luis CONTENT ADMINISTRATOR.MECHANICAL ASSEMBLY Work Phone: [facility] 06-08-2024 13:29-0400 Body weight 99.6 kg Jesus José Luis CONTENT ADMINISTRATOR.[employer]CHANICAL [employer]SEMBL[employer] Work Phone: [facility] 06-08-2024 13:29-0400 Diastolic blood pressure 84 mm[Hg] Jesus José Luis CONTENT ADMINISTRATOR.MECHANICAL ASSEMBLY Work Phone: [facility] 06-08-2024 13:29-0400 Heart rate 80 /min Jesus José Luis CONTENT ADMINISTRATOR.[employer]CH[employer]BL[employer] Work Phone: [facility] 06-08-2024 13:29-0400 Respiratory rate 16 /min Jesus José Luis CONTENT ADMINISTRATOR.MECHANICAL ASSEMBLY Work Phone: [facility] 06-08-2024 13:29-0400 SaO2% (BldA) [Mass fraction] 98 % Jesus José Luis CONTENT ADMINISTRATOR.MECHANICAL ASSEMBLY Work Phone: [facility] 06-08-2024 13:29-0400 Systolic blood pressure 138 mm[Hg] Jesus José Luis CONTENT ADMINISTRATOR.MECHANICAL ASSEMBLY Work Phone: [facility] 09-12-2023 13:14-0500 Body height 180.[address] Candelario Hawkins Work Phone: [facility] 09-12-2023 13:14-0500 Body mass index (BMI) [Ratio] 31.6 kg/m2 Dr. Candelario Hawkins Work Phone: [facility] 09-12-2023 13:14-0500 Body temperature 97.1 [degF] Dr. Candelario Hawkins Work Phone: [facility] 09-12-2023 13:14-0500 Body weight 102.[address] Cnadelario Hawkins Work Phone: [facility] 09-12-2023 13:14-0500 Diastolic blood pressure 82 mm[Hg] Dr. Candelario Hawkins Work Phone: [facility] 09-12-2023 13:14-0500 Heart rate 88 /min Dr. Candelario Hawkins Work Phone: [facility] 09-12-2023 13:14-0500 Respiratory rate 16 /min Dr. Candelario Hawkins Work Phone: [facility] 09-12-2023 13:14-0500 SaO2% (BldA) [Mass fraction] 96 % Dr. Candelario Hawkins Work Phone: [facility] 09-12-2023 13:14-0500 Systolic blood pressure 122 mm[Hg] Dr. Candelario Hawkins Work Phone: [facility] 04-12-2022 14:48-0400 Body height 180.[address] Candelario Hawkins Work Phone: [facility] Work Phone: 04-12-2022 14:48-0400 Body mass index (BMI) [Ratio] 31.8 kg/m2 Dr. Candelario Hawkins Work Phone: [facility] Work Phone: 04-12-2022 14:48-0400 Body temperature 97.4 [degF] Dr. Candelario Hawkins Work Phone: [facility] Work Phone: 04-12-2022 14:48-0400 Body weight 103.[address] Candelario Hawkins Work Phone: [facility] Work Phone: 04-12-2022 14:48-0400 Diastolic blood pressure 66 mm[Hg] Dr. Candelario Hawkins Work Phone: [facility] Work Phone: 04-12-2022 14:48-0400 Heart rate 94 /min Dr. Candelario Hawkins Work Phone: [facility] Work Phone: 04-12-2022 14:48-0400 Respiratory rate 16 /min Dr. Candelario Hawkins Work Phone: [facility] Work Phone: 04-12-2022 14:48-0400 SaO2% (BldA) [Mass fraction] 97 % Dr. Candelario Hawkins Work Phone: [facility] Work Phone: 04-12-2022 14:48-0400 Systolic blood pressure 128 mm[Hg] Dr. Candelario Hawkins Work Phone: [facility] Work Phone: Encounters Encounter Date Encounter Type Care Provider Facility Start: 07-14-2025 ambulatory Efelierbe Oleghe Facili ty:[facility] Start: 06-20-2025 ambulatory Efewongbe Oleghe Facili ty:[facility] Start: 06-10-2025 End: 06-10-2025 ambulatory Efewchicabe Oleghe Facility:[facility] Start: 05-26-2025 End: 05-26-[address] Candelario Hawkins MD Work Phone: [facility] Start: 05-26-2025 End: 05-26-2025 Patient encounter procedure Gretel Edwin [employer] -Ultrasound [facility] Work Phone: Start: 05-26-2025 End: 05-26-2025 ambulatory Alexandrawheatlandroger Hawkins Facility:[facility] Start: 05-24-2025 End: 05-24-2025 Patient encounter procedure Gretel Pineda [employer] [facility] Work Phone: Start: 05-24-2025 End: 05-24-[address] Candelario Hawkins MD Work Phone: [facility] Start: 03-09-2025 End: 03-09-[address] Candelario Hawkins MD -[facility] Work Phone: Start: 03-09-2025 End: 03-09-[address] Candelario Hawkins MD [facility] Start: 03-09-2025 End: 03-09-[address] Candelario Hawkins MD Work Phone: [facility] Start: 03-09-2025 End: 03-09-2025 ambulatory Alexandrawheatlandroger Hawkins Facility:[facility] Start: 01-26-2025 End: 01-26-[address] Candelario Hawkins MD -[facility] Work Phone: Start: 01-26-2025 End: 01-26-[address] Candelario Hawkins MD Work Phone: [facility] Work Phone: Start: 01-11-2025 End: 01-11-2025 Subsequent hospital visit by physician [facility] Work Phone: Radiology Comment on above: Acute cough [R05.1] Start: 01-11-2025 End: 01-11-2025 Patient encounter procedure Roxanne Anderson APRN.MECHANICAL ASSEMBLY Work Phone: [facility] Comment on above: Streptococcus exposu re (Primary Dx); Acute cough; Respiratory infection Start: 01-11-2025 End: 01-11-2025 ambulatory [facility] Facility:[facility] Start: 01-11-2025 End: 01-11-2025 Follow-up encounter Roxanne Anderson APRN.CNP Work Phone: [facility] Start: 11-28-2024 End: 11-28-2024 ambulatory [facility] Facility:[facility] Start: 11-28-2024 End: 11-28-2024 Office outpatient new 30 minutes Zakiya Nati YU Work Phone: [facility] Comment on above: Bronchopneumonia (Pr imary Dx) Start: 10-11-2024 End: 10-11-[address] Candelario Hawkins MD -Laboratory [facility] Start: 10-11-2024 End: 10-11-2024 ambulatory [facility] Facility:[facility] Start: 09-28-2024 Encounter for genera l adult medical examination without abnormal findings [facility] Start: 09-08-[address] Jose Hawkins MD Work Phone: [facility] Start: 09-08-2024 End: 09-08-2024 ambulatory [facility] Facility:[facility] Start: 09-08-2024 End: 09-08-2024 ambulatory [facility] Facility:[facility] Start: 08-02-2024 End: 08-02-2024 ambulatory [facility] Facility:[facility] Start: 06-09-2024 End: 06-10-2024 Telephone encounter Jesus Ordonez APRN.CNP Work Phone: [facility] Comment on above: Results Start: 06-08-2024 End: 06-08-2024 ambulatory [facility] Facility:[facility] Start: 06-08-2024 End: 06-08-2024 Patient encounter procedure Jesus Ordonez APRN.CNP Work Phone: [facility] Comment on above: Intertrigo (Primary Dx); Burning with urination Start: 09-16-2023 End: 09-16-[address] Candelario Hawkins Work Phone: [facility] Work Phone: Start: 09-16-2023 End: 09-16-[address] Candelario Hawkins Work Phone: [facility] Work Phone: Start: 09-12-2023 End: 09-12-[address] Candelario Hawkins Work Phone: [facility] Work Phone: Start: 09-12-2023 End: 09-12-[address] Candelario Hawkins Work Phone: [facility] Work Phone: Start: 04-12-2022 End: 04-12-[address] Candelario Hawkins Work Phone: [facility] Start: 07-11-[address] Jose Hawkins Work Phone: [facility] Start: 06-15-2018 End: 06-16-2018 Patient encounter Ani Walters Facility:[facility] Start: 03-01-2017 End: 03-02-2017 Ambulatory PHY WO ID REFERRING Facility:[facility] Procedures Date Procedure Procedure Detail Performing Clinician Start: 05-26-2025 Us scrotum & contents D jalil Hawkins MD Work Phone: Start: 01-11-2025 Radiologic exam ches t 2 views Roxanne Anderson APRN.MECHANICAL ASSEMBLY Work Phone: Start: 01-11-2025 STREP A MOLECULAR (POC) Roxanne Anderson APRN.MECHANICAL ASSEMBLY Work Phone: Start: 10-11-2024 Measurement of renal function Dr. Candelario Hawkins MD Work Phone: Comment on above: GFR Calc Start: 06-08-2024 Urnls dip stick/tabl et rgnt auto w/o microscopy Jesus Ordonez APRN.MECHANICAL ASSEMBLY Work Phone: Start: 09-16-[address] aCndelario Hawkins Work Phone: Start: 09-12-2023 Coronavirus COVID-[address] Candelario Hawkins Work Phone: Start: 09-12-2023 Influenza Types A & B (PCR) Dr. Candelario Hawkins Work Phone: Plan of Treatment Date Care Activity Detail Author Start: 11-10-2029 Urine microalbumin profile DTaP,Tdap,Td Vaccine (2 - Td or Tdap) [facility] Start: 05-26-2025 Us scrotum & contents Testicular with Arterial Flow [facility] Start: 03-09-2025 Basic metabolic 2008 panel with ionized calcium - Serum or Plasma [facility] Start: 03-09-2025 Thyroid stimulating hormone measurement [facility] Start: 05-02-2024 Covid-19 Vaccine ( season) Covid-19 Vaccine ( season) [facility] Start: 05-02-2024 Influenza vaccination Influenza Vaccine (#1) [facility] Start: 2016 Diabetes Screening Diabetes Screening [facility] Start: 2016 Screening for malignant neoplasm of colon [facility] Start: 2006 Lipid panel Lipid Screening [facility] Start: 1990 Hepatitis B Vaccine (1 of 3 - 19+ 3-dose series) Hepatitis B Vaccine (1 of 3 - 19+ 3-dose series) [facility] Start: 1989 Anxiety Screening Anxiety Screening [facility] Start: 1989 Depression Screening Depression Screening [facility] Start: 1989 Hepatitis C screening Hepatitis C Screening [facility] Start: 1989 HIV screening HIV Screening [facility] Anion gap in Serum o r Plasma [facility] Bacteria identified in Urine by Culture URINE CULTURE Microbiology Routine Burning with urination 06/08/2024 2:52 PM EDT [facility] Work Phone: BUN/Creatinine ratio [facility] Calcium [Mass/volume ] in Serum or Plasma [facility] Carbon dioxide, tota l [Moles/volume] in Central venous blood [facility] Creatinine [Mass/vol ume] in Serum or Plasma [facility] CT Abdomen [facility] Glucose [Mass/volume ] in Serum or Plasma [facility] Measurement of renal function [facility] Potassium measurement [facility] SARS-CoV-2 [facility] Serum chloride measurement [facility] Sodium measurement [facility] Urea nitrogen [Mass/volume] in Serum or Plasma [facility] Immunizations Immunization Date Immunization Notes Care Provider Fa [facility] 08-13-2024 Covid (Spikevax) Dr. Husam Hawkins MD Work Phone: [facility] 08-02-2024 influenza, injectabl e, madin boy canine kidney, preservative free Dr. Candelario Hawkins MD Work Phone: [facility] 08-02-2024 Influenza, injectabl e, Madin [place] Canine Kidney, preservative free, quadrivalent Dr. Candelario Hawkins MD Work Phone: [facility] 06-01-2023 Pfizer Covid-19 (Comirnaty) Dr. Candelario Hawkins MD Work Phone: [facility] 06-21-2022 Covid Pfizer Bivalen t Booster Dr. Candelario Hawkins MD Work Phone: [facility] 06-01-2022 influenza virus vaccine, unspecified formulation Jesus Ordonez APRN.CNP Work Phone: [facility] 01-31-[address] Candelario Hawkins MD Work Phone: [facility] 11-26-2021 Pneumococcal Vaccine PCV20 (Prevnar 20) Dr. Candelario Hawkins MD Work Phone: [facility] 11-26-[address] Candelario Hawkins MD Work Phone: [facility] 07-04-2021 Covid (Pfizer) Dr. Candelario Hawkins Work Phone: [facility] 11-17-2020 Covid (Pfizer) Dr. Candelario Hawkins Work Phone: [facility] 10-27-2020 Covid (Pfizer) Dr. Candelario Hawkins Work Phone: [facility] 11-11-2019 tetanus toxoid, redu marlena diphtheria toxoid, and acellular pertussis vaccine, adsorbed Dr. Candelario Hawkins MD Work Phone: [facility] 06-01-2016 influenza, injectabl e, quadrivalent, preservative free Dr. Candelario Hawkins MD Work Phone: [facility] 08-17-2009 novel [id number], preservative-free, injectable Dr. Candelario Hawkins MD Work Phone: [facility] Payers Date Payer Category Payer Self-pay [id number] 2023 Private Health Insurance MMO SUP [employer] PPO [id number] 2023 Unknown MMO MMO SUPERMED PPO [id number] 2023-Present [phone] [address] [place] [address] PPO [id number] 2023 Unknown [id number] 2011 Private Health Insurance [id number] 1970 Unknown [id number] 627 Unknown [id number]. 462 Unknown [id number]. 462 Unknown [id number]. 462 Unknown [id number] [id number]. 462 Unknown [id number]. 462 Unknown [id number] [id number]. 462 Unknown [id number]. 462 Unknown [id number]. 462 Unknown [id number]. 462 Unknown [id number]. 462 Unknown [id number]. 462 Unknown [id number]. 462 Social History Date Type Detail Facility Start: 04-12-2022 End: 09-12-2023 Tobacco smoking status NHIS Unknown if ever smoked [facility] Start: 1970 Sex Assigned At Male [facility] Start: 06-08-2024 Tobacco smoking stat us DEIS Never smoked tobacco [facility] Start: 06-08-2024 Tobacco use and exposure User of smokeless tobacco [facility] Start: 06-08-2024 End: 01-11-2025 History of Social function [facility] Start: 06-08-2024 End: 01-11-2025 Tobacco use panel [facility] Start: 1970 Sex assigned at Not on file [facility] Start: 08-02-2024 [facility] Clinical Notes 06-08-2024 to 05-26-2025 Note Date & Type Note Facility 05-26-2025 Radiology Diagnostic study note [facility] Imaging Services [address] [place], [place] [address] Testicular with Arterial Flow MR#: [id number] Acct: [id number] Name: ROMAN BETTS Rep #: [id number] : 1970 M 54 From: Luisito Bundy MD PCP: Dr. Candelario Hawkins MD Status: R EG CLI Study:Testicular with Arterial Flow Date of E xam: 05/26/25 Exam# [id number] Ordering Dr: Gretel Pineda [employer] PROCEDURE: TESTICULAR WITH ARTERIAL FLOW 05/26/2025 REASON FOR EXAM: RIGHT TESTICULAR PAIN TECHNIQUE: Procedure Code: USTES Modality: US Procedure: TESTICULAR WITH ARTERIAL FLOW FINDINGS: Right testicle measures 4.5 x 3.4 x 2.8 cm Right testicular echotexture is homogeneous Right testicular arterial and venous vascularity are within normal limits Right epididymal head measures 1.2 x 1.0 x 1.1 cm, normal in size Right epididymal cyst measuring 1.0 x 0.7 x 0.3 cm is present No hydrocele is seen on the right Right varicocele is demonstrated with Valsalva maneuver, maximal diameter 3 mm Left testicle measures 4.1 x 3.7 x 2.0 cm Left testicular echotexture is homogeneous Left testicular arterial and venous vascularity are within normal limits Left epididymal head measures 1.6 x 1.2 x 0.6 cm, normal in size No left epididymal cyst is identified No hydrocele is seen on the left No varicocele demonstrated on the left US/Testicular with Arterial Flow IMPRESSION: Normal size and homogeneous echotexture of both testes with preserved vascularity Right epididymal cyst measuring up to 1.0 cm Right varicocele with maximal diameter 3 mm No hydrocele identified Reading Location: [id number] CC: CEASAR Pineda; Dr. Candelario Hawkins MD ~ Radio Producer: Signed [facility] 05-24-2025 Progress note [facility] 03-09-2025 Evaluation note Diagnosis Onset Date Resolution Bronchitis acute March 09, 2025 2:53pm Health care maintenance acute J vikas 2024 2:53pm GERD (gastroesophageal reflux disease) chronic March 09, 2025 2:53pm Hyperlipidemia chronic March 09, 2025 2:53pm Hypertension chronic March 09 2:53pm Hypothyroidism chronic March 09, 2025 2:53pm RLQ abdominal pain acute 2024 7:20am Testicle pain acute May 032024 7:20am [facility] Work Phone: 1(496) 940-878705-28-2025 Evaluation note* Diagnosis Onset Date Resolution Status Admit Date Bronchitis acute January 26, 2025 1:10pm Chest congestion acute December 1:10pm Cough acute January 26, 2025 1:10pm URI (upper respiratory infection) ac corinth January 26, 2025 1:10pm [facility] Work Phone: 1(103) 230-701905-28-2025 Evaluation note* Diagnosis Onset Date Resolution Status Admit Date Bronchitis acute January 26, 2025 1:10pm Chest congestion acute December 1:10pm Cough acute January 26, 2025 1:10pm URI (upper respiratory infection) ac corinth January 26, 2025 1:10pm Bronchitis acute March 09, 2025 2:53pm Health care maintenance acute J vikas 2024 2:53pm GERD (gastroesophageal reflu x disease) chronic March 09, 2025 2 :53pm Hyperlipidemia chronic March 09, 2025 2:53pm Hypertension chronic March 09 2:53pm Hypothyroidism chronic March 09, 2025 2:53pm [facility] Work Phone: 1(650) 714-654605-13-2025 Telephone encounter Note* Telephone Encounter - Roxanne Anderson APRN.CNP - 01/11/2025 8:09 PM EDT Called and let them know it was negative the xray and they will continue care plan. Follow up if needed [facility]05-13-2025 Miscellaneous Notes* Telephone Encounter - Roxanne Anderson APRN.CNP - 01/11/2025 8:09 PM EDT Called and let them know it was negative the xray and they will continue care plan. Follow up if needed documented [facility] History of Present illness Narrative* Serina Giordano Tech - 01/11/2025 7:50 PM EDT Radiology Service Progress Note PATIENT NAME: Roman Betts DATE OF SERVICE: January 11, 2025 TIME: 7:48 PM PATIENT IDENTITY VERIFICATION COMPLETED USING TWO (2) IDENTIFIERS: Name and Date of confirmedby patient verbally. FALL SCREENING: Has the patient had 2 falls in the last year or 1 fall with injury or currently using an Ambulatory Assistive Device (Walker, Cane, Wheelchair, Crutches, etc.)? No PATIENT GENDER DATA: Assigned male at PATIENT RELEVANT IMPLANT DATA REVIEWED: Not Applicable PATIENT PRESENTS WITH AN IMPLANTABLE OR ATTACHED DECKHAND SHRIMP BOAT: No RADIOLOGY DEPARTMENT: General X-ray: Exam(s) Completed: Chest X-Ray PERIPHERAL IV DATA: Not applicable SIGNED BY: Ayala Cox January 11, 2025 7:48 PM documented in this encounterL[facility] NoteHNO ID: [id number] Author: SERINA GIORDANO Tech Service: ? Author Type: Technologist Type: Progress Notes Filed: 01/11/2025 19:52 Note Text: Radiology Service Progress Note PATIENT NAME: Roman Betts DATE OF SERVICE: January 11, 2025 TIME: 7:48 PM PATIENT IDENTITY VERIFICATION COMPLETED USING TWO (2) IDENTIFIERS: Name and Date of confirmed by patient verbally. FALL SCREENING: Has the patient had 2 falls in the last year or 1 fall with injury or currently using an Ambulatory Assistive Device (Walker, Cane, Wheelchair, Crutches, etc.)? No PATIENT GENDER DATA: Assigned male at PATIENT RELEVANT IMPLANT DATA REVIEWED: Not Applicable PATIENT PRESENTS WITH AN IMPLANTABLE OR ATTACHED DECKHAND SHRIMP BOAT: No RADIOLOGY DEPARTMENT: General X-ray: Exam(s) Completed: Chest X-Ray PERIPHERAL IV DATA: Not applicable SIGNED BY: Ayala Cox January 11, 2025 7:[address] [facility]05-13-2025 NoteHNO ID: [id number] Author: ROXANNE ANDERSON APRN.MECHANICAL ASSEMBLY Service: ? Author Type: Nurse Practitioner Type: Progress Notes Filed: 01/11/2025 19:58 Note Text: [facility] Subjective Roman Betts is a 54 year old male. Patient presents with: Cough: Chest congestion, headache, sinus pressure, SOB, wheezing, tightness in chest, x 5 days increasing Patient came in with complaints of cough shortness of breath and wheezing. Patient said that he has been sick for 5 days and seems like it is getting worse. Patient says he did have pneumonia about a month ago. Patient has no lung history said he has no asthma was never smoker. The history is provided by the patient. No claims director was used. Cough Review of Systems Respiratory: Positive for cough. Objective BP 112/81 Pulse 98 Temp 37.6 ?C (99.6 ?F) Resp 22 Wt 100 kg (220 lb 7.4 oz) SpO2 97% Physical Exam Constitutional: Appearance: Normal appearance. HENT: Right Ear: Tympanic membrane, ear canal and external ear normal. Left Ear: Tympanic membrane, ear canal and external ear normal. Nose: Nose normal. Mouth/Throat: Mouth: Mucous membranes are moist. Pharynx: Posterior oropharyngeal erythema present. Eyes: Pupils: Pupils are equal, round, and reactive to light. Cardiovascular: Rate and Rhythm: Normal rate and regular rhythm. Heart sounds: Normal heart sounds. Pulmonary: Effort: Pulmonary effort is normal. Breath sounds: Wheezing present. Neurological: Mental Status: He is alert. No past medical history on file. No past surgical history on file. ALLERGIES Sulfur Dioxide MEDICATIONS atorvastatin (LIPITOR) 20 mg tablet Take 1 tablet by mouth daily at bedtime. amLODIPine (NORVASC) 5 mg tablet Take 1 tablet by mouth once daily. SYNTHROID 150 mcg tablet Take 1 tablet by mouth every morning. omeprazole (PRILOSEC) 40 mg capsule albuterol HFA (PROVENTIL HFA, VENTOLIN HFA) 90 mcg/actuation inhaler Inhale 2 Puffs as instructed every 4 hours as needed for wheezing/shortness of breath. famotidine (PEPCID) 20 mg tablet Take 1 tablet by mouth once daily as needed. (Patient not taking: Reported on 01/11/2025) No family history on file. Social History Tobacco Use Smoking status: Never Smokeless tobacco: Current {ASSESSMENT/PLAN: 1. Streptococcus exposure - ICD9: V01.89, ICD10: Z20.818 (primary diagnosis) - STREP A MOLECULAR (POC) 2. Acute cough - ICD9: 786.2, ICD10: R05.1 - XR CHEST 2V FRONTAL/LAT 3. Respiratory infection - ICD9: 519.8, ICD10: J98.8 - AMOXICILLIN 875 MG-POTASSIUM CLAVULANATE 125 MG TABLET - AIRSUPRA 90 MCG-80 MCG/ACTUATION HFA AEROSOL INHALER - [id number] 2 MG-30 MG-10 MG/5 ML ORAL SYRUP Patient's x-ray was not back before we closed. When x-ray comes back please call patient let him know the findings. Because patient was recently on doxycycline I am placing him on a different antibiotic Augmentin. Because patient is extremely wheezy throughout bilateral lobes I am treating him for a possible pneumonia. If the x-ray is negative patient can stop the antibiotic but can continue the other medication. Roxanne Anderson APRN.MECHANICAL ASSEMBLY History and Record Review External record(s) reviewed: no prior records. Disposition The patient was discharged. [facility] History of Present illness Narrative* Roxanne Anderson APRN.MECHANICAL ASSEMBLY - 01/11/2025 7:42 PM EDT [facility] Subjective Roman Betts is a 54 year old male. Patient presents with: Cough: Chest congestion, headache, sinus pressure, SOB, wheezing, tightness in chest, x 5 days increasing Patient came in with complaints of cough shortness of breath and wheezing. Patient said that \he has been sick for 5 days and seems like it is getting worse. Patient says he did have pneumonia about a month ago. Patient has no lung history said he has no asthma was never smoker. The history is provided by the patient. No claims director was used. Cough Review of Systems Respiratory: Positive for cough. Objective BP 112/81 Pulse 98 Temp 37.6 C (99.6 F) Resp 22 Wt 100 kg (220 lb 7.4 oz) SpO2 97% Physical Exam Constitutional: Appearance: Normal appearance. HENT: Right Ear: Tympanic membrane, ear canal and external ear normal. Left Ear: Tympanic membrane, ear canal and external ear normal. Nose: Nose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 Pt Off vis,est,level 3 Patient Type Established History Problem Focused Exam Problem Focused Medical Decision Making Moderate Complexity Diagnoses Pain in right testicle N50.811 Laterality: right RLQ abdominal pain R10.31 Time Spent (min) 30 Assessment and Plan Assessment and Plan (1) Testicle pain: Status: Acute Qualifiers: Laterality: right Qualified Code(s): N50.811 - Right testicular pain Plan: Right testicle pain after exerting force with pulling the lead will obtain ultrasound to rule out hernia versus hydrocele versus other cause. (2) RLQ abdominal pain: Status: Acute Plan: Patient with right lower quadrant abdominal pain along with the test killer pain. Will obtain ultrasound to rule out other causes of pain or hernia. May need CAT scan for further evaluation. Orders: Orders Testicular with Arterial Flow Today N50.819 - Testicular pain, unspecified Abdomen Complete Today R10.31 - Right lower quadrant pain Plan Details Follow Up: As needed 05/24/25 0841 <Electronically signed by Gretel douglas NP-C> Date _ Gretel Pineda NP-C Cosigner Signature: Date (if applicable) CC: ~ [facility] Work Phone: Reason for referral (narrative)No reason for referral information availableCentral [facility] Hospital Work Phone: Summary Purpose Family History No Family History Records Found Relationship Condition Age at Onset Recorded Date/T fausto grandfather Alcoholism Unknown Angina at rest Unknown grandmother Malignant neoplasm of breast Unknown father High blood cholesterol Unknown Disorder of thyroid Unknown Myocardial infarction Unknown Advance Directives No Advanced Directives Records Found Advance Directive Response Recorded Date/ Time Living Will Yes September 25 10:13am Power of Coffee Weigher Yes September 25, 2021 10:13am Advance Directive Response Recorded Date/ Time Living Will Yes September 25 9:13am Power of Coffee Weigher Yes September 25, 2021 9:13am Chief Complaint and Reason for Visit Chief Complaint R/S - FOLLOW UP Reason for Visit Hyperlipidemia Hypertension Hypothyroidism Chief Complaint MED REFILL RUQ PAIN Reason for Visit Abdominal pain URI (upper respiratory infection) GERD (gastroesophageal reflux disease) Hyperlipidemia Hypertension Hypothyroidism Chief Complaint Admit Date Congestion / Cough January 26, 2025 1:10p m Chief Complaint Admit Date Congestion / Cough January 26, 2025 1:10p m 6 M FU March 09, 2025 2:53p m Reason for Visit Admit Date Bronchitis January 26, 2025 1:10p m Chest congestion January 26, 2025 1:10p m Cough January 26, 2025 1:10p m URI (upper respiratory infection) January 262024 1:10pm Reason for Visit Admit Date Bronchitis January 26, 2025 1:10p m Chest congestion January 26, 2025 1:10p m Cough January 26, 2025 1:10p m URI (upper respiratory infection) January 262024 1:10pm Bronchitis March 09, 2025 2:53p m Health care maintenance March 09, 2025 2 :53pm GERD (gastroesophageal reflux disease) [facility] 2024 2:53pm Hyperlipidemia March 09, 2025 2:53p m Hypertension March 09, 2025 2:53p m Hypothyroidism March 09, 2025 2:53p m Chief Complaint Admit Date 6 M FU March 09, 2025 2:53p m Possible Hernia? May 24, 2025 7:20am right testicular pain, RLQ pain [facility] 2024 4:02pm Reason for Visit Admit Date Bronchitis March 09, 2025 2:53p m Health care maintenance March 09, 2025 2 :53pm GERD (gastroesophageal reflux disease) J [facility] 2024 2:53pm Hyperlipidemia March 09, 2025 2:53p m Hypertension March 09, 2025 2:53p m Hypothyroidism March 09, 2025 2:53p m RLQ abdominal pain May 24, 2025 7:20am Testicle pain May 24, 2025 7:20am Additional Source Comments (unrecognized sect ion and content) No Status Records FoundNo Status Records FoundNo Status Records FoundNo Status Records FoundNo Status Records Found INFORMATION SOURCE (unrecogn ized section and content) DATE CREATED AUTHOR 02/25/2018 [employer] [facility] DATE CREATED AUTHOR AUTHOR'S ORGANIZ ATION 07/18/2018 [facility] ([place]) DATE CREATED AUTHOR AUTHOR'S ORGANIZ ATION 11/08/2019 [facility] DATE CREATED AUTHOR AUTHOR'S ORGANIZ ATION 01/13/2025 [facility] DATE CREATED AUTHOR AUTHOR'S ORGANIZ ATION 07/14/2025 [facility] Goals (unrecognized section and content) Goals may be documented in a n alternate sectionGoals may be documented in an alternate sectionGoals may be documented in an alternate sectionGoals may be documented in an alternate sectionGoals may be documented in an alternate sectionGoals may be documented in an alternate sectionGoals may be documented in an alternate sectionGoals may be documented in an alternate section Care Teams (unrecognized sec tion and content) Team Status: Active Member Role Status Dates Dr. Tracie Bonilla DO Family Provider Active Dr. Candelario Hawkins MD Primary Care Provider Active Team Status: Inactive Member Role Status Dates Dr. Candelario Hawkins MD Primary Care P mehnaz, Attending Provider, Referring Provider Active Team Status: Active Member Role Status Dates Dr. Candelario Hawkins MD Primary Care P mehnaz, Attending Provider, Referring Provider Active Supervisor Filtration Relationship Specialty Start Date End Date Candelario Hawkins MD [address] [place] [address] PCP - General Internal Medicine 06/08/24 Supervisor Filtration Relationship Specialty Start Date End Date Candelario Hawkins MD [address] [place] [address] PCP - General Internal Medicine 06/08/24 Supervisor Filtration Relationship Specialty Start Date End Date Candelario Hawkins MD [address] [place] [address] PCP - General Internal Medicine 06/08/24 Supervisor Filtration Relationship Specialty Start Date End Date Candelario Hawkins MD [address] [place] [address] PCP - General Internal Medicine 06/08/24 Supervisor Filtration Relationship Specialty Start Date End Date Candelario Hawkins MD [address] [place] [address] PCP - General Internal Medicine 06/08/24 Team Status: Inactive Member Role Status Dates Dr. Candelario Hawkins MD Primary Care Provider Active Start: October 11, 2024 End: October 11, 2024 Dr. Candelario Hawkins MD Attending Provider Active Start: October 11, 2024 End: October 11, 2024 Dr. Candelario Hawkins MD Referring Provider Active Start: October 11, 2024 End: October 11, 2024 Team Status: Inactive Member Role Status Dates Dr. Candelario Hawkins MD Primary Care Provider Active Start: January 26, 2025 End: January 26, 2025 Dr. Candelario Hawkins MD Attending Provider Active Start: January 26, 2025 End: January 26, 2025 Dr. Candelario Hawkins MD Referring Provider Active Start: January 26, 2025 End: January 26, 2025 Team Status: Active Member Role/Relationship Status Dates Dr. Tracie Bonilla DO Family Provider Active Dr. Candelario Hawkins MD Primary Care Provider Active Team Status: Inactive Member Role/Relationship Status Dates Dr. Candelario Hawkins MD Primary Care Provider Active Start: January 26, 2025 End: January 26, 2025 Dr. Candelario Hawkins MD Attending Provider Active Start: January 26, 2025 End: January 26, 2025 Dr. Candelario Hawkins MD Referring Provider Active Start: January 26, 2025 End: January 26, 2025 Team Status: Inactive Member Role/Relationship Status Dates Dr. Candelario Hawkins MD Primary Care Provider Active Start: March 09, 2025 End: March 09, 2025 Dr. Candelario Hawkins MD Attending Provider Active Start: March 09, 2025 End: March 09, 2025 Dr. Candelario Hawkins MD Referring Provider Active Start: March 09, 2025 End: March 09, 2025 Team Status: Active Member Role/Relationship Status Dates Dr. Candelario Hawkins MD Primary Care Provider Active Start: March 09, 2025 Dr. Candelario Hawkins MD Attending Provider Active Start: March 09, 2025 Dr. Candelario Hawkins MD Referring Provider Active Start: March 09, 2025 Team Status: Inactive Member Role/Relationship Status Dates Dr. Candelario Hawkins MD Primary Care Provider Active Start: March 09, 2025 End: March 09, 2025 Dr. Candelario Hawkins MD Attending Provider Active Start: March 09, 2025 End: March 09, 2025 Dr. Candelairo Hawkins MD Referring Provider Active Start: March 09, 2025 End: March 09, 2025 Team Status: Active Member Role/Relationship Status Dates Dr. Candelario Hawkins MD Primary care physician Activ e Team Status: Inactive Member Role/Relationship Status Dates Dr. Candelario Hawkins MD Primary care physician Activ e Start: March 09, 2025 End: March 09, 2025 Dr. Candelario Hawkins MD Attending physician Active Start: March 09, 2025 End: March 09, 2025 Dr. Candelario Hawkins MD Referring Provider Active Start: March 09, 2025 End: March 09, 2025 Team Status: Inactive Member Role/Relationship Status Dates Dr. Candelario Hawkins MD Primary care physician Activ e Start: March 09, 2025 End: March 09, 2025 Dr. Candelario Hawkins MD Attending physician Active Start: March 09, 2025 End: March 09, 2025 Dr. Candelario Hawkins MD Referring Provider Active Start: March 09, 2025 End: March 09, 2025 Team Status: Inactive Member Role/Relationship Status Dates Dr. Candelario Hawkins MD Primary care physician Activ e Start: May 24, 2025 End: May 24, 2025 Dr. Candelario Hawkins MD Referring Provider Active Start: May 24, 2025 End: May 24, 2025 CEASAR Domingo Attending physician Active Start: May 24, 2025 End: May 24, 2025 Team Status: Inactive Member Role/Relationship Status Dates Dr. Candelario Hawkins MD Primary care physician Activ e Start: May 26, 2025 End: May 26, 2025 CEASAR Domingo Attending physician Active Start: May 26, 2025 End: May 26, 2025 CEASAR Domingo Referring Provider Active Start: May 26, 2025 End: May 26, 2025 Source Comments (unrecognize d section and content) In the event this informatio n is protected by the Federal Confidentiality of Alcohol and Drug Abuse Patient Records regulations: The Federal rules restrict any use of the information to criminally investigate or prosecute any alcohol or drug abuse patient.[facility] the event this information is protected by the Federal Confidentiality of Alcohol and Drug Abuse Patient Records regulations: The Federal rules restrict any use of the information to criminally investigate or prosecute any alcohol or drug abuse patient.[facility] the event this information is protected by the Federal Confidentiality of Alcohol and Drug Abuse Patient Records regulations: The Federal rules restrict any use of the information to criminally investigate or prosecute any alcohol or drug abuse patient.[facility] the event this information is protected by the Federal Confidentiality of Alcohol and Drug Abuse Patient Records regulations: The Federal rules restrict any use of the information to criminally investigate or prosecute any alcohol or drug abuse patient.[facility] the event this information is protected by the Federal Confidentiality of Alcohol and Drug Abuse Patient Records regulations: The Federal rules restrict any use of the information to criminally investigate or prosecute any alcohol or drug abuse patient.[facility] the event this information is protected by the Federal Confidentiality of Alcohol and Drug Abuse Patient Records regulations: The Federal rules restrict any use of the information to criminally investigate or prosecute any alcohol or drug abuse patient.[facility] Reason for Visit (unrecogniz ed section and content) Reason Comments burning with urination Itching/burning w ith urination and rectal itching x 2 days Reason Comments Results Reason Comments Pain, Sinus Sinus pain and press ure, and wheezing x 4 days Reason Comments Cough Chest congestion, he adache, sinus pressure, SOB, wheezing, tightness in chest, x 5 days increasing FOR RECORDS PERTAINING TO PATIENTS WHO ARE [...] BE BASED ON THE PRIMARY CLINICAL RECORDS. [facility]. provides no warranty or guarantee of the accuracy or completeness of information in this document.
[2025-07-22] MEDS: Lactated Ringers 1,000 ML 15 ML IV (10:09)
--- NOTE | 2025-07-22 10:30 | LIP_PTH ---
PATIENT: LINDA PLATT LOC: [facility] U#:[id number] AGE/SX: 54/M ROOM: RE07/22/[address]: Dr. Xu Blair MD : 1970 BED: DIS: 07/22/2025 SPEC #: [id number] RECD: 07/25/25 07:18 STATUS: RAYMOND LEDBETTER #: [id number] MAURY: 07/22/25 10:[address]: Xu Blair DEPT: SURGICAL PATHOLOGY RECD BY: Kiera Guadarrama ENTERED: 07/25/25 11:38 SP TYPE: LIPOMA OTHR DR: Dr. Paul Hawkins MD Tissues: Soft tissues, NOS Procedures: Surgery Specimen Level III HEADER OPERATION: Laparoscopic robotic inguinal hernia with mesh PRE-OP DIAGNOSIS: Inguinal hernia, right lower quadrant abdominal pain, umbilical hernia without obstruction and without gangrene TISSUE SUBMITTED: A- Right cord lipoma MICROSCOPIC DIAGNOSIS A. Soft tissue, right cord, excision: * Lipoma MICROSCOPIC DESCRIPTION Slides are reviewed. GROSS DESCRIPTION A. Received in formalin labeled with the patient's name and date of . Designated as right cord lipoma is a 3.4 x 1.1 x 0.5 cm moon-yellow, lobulated portion of soft tissue, devoid of orientation. The specimen is bisected and entirely submitted in 1 cassette. MS [id number]
--- NOTE | 2025-07-22 10:47 | HP.PCM_ITS ---
History and Physical Date of Admission: 07/22/25 Date of Service: 07/14/25 MR#: [id number] Acct: [id number] Name: LINDA PLATT Rep #: [id number] : 1970 Provider: Dr. Xu Blair MD Age/Sex: 54/M Location: [facility] Status: Signed Intake Vital Signs 05/24/2507:35 07/14/2514:28 Height 5 ft 11 in 5 ft 11 in Weight: 227 lb 231 lb BMI 31.6 32.2 BP 144/90 H 148/87 H Blood Pressure Location Lt brachial Rt brachial Position Sitting Sitting Respiration 16 17 Pulse 76 94 Pulse Source Monitor Monitor Temp 97.7 F L Temp Source Temporal Pulse Oximetry (%) 97 95 Oxygen Delivery Method room air room air Intake Visit Reasons: INGUINAL HERNIA Chief Complaint: inguinal hernia Is patient in pain?: No Allergies Sulfa (Sulfonamide Antibiotics) Adverse Reaction (Mild, Verified 07/14/25 14:29) Rash Medications ?Medication ?Instructions ?Recorded ?Confirmed ?Type amlodipine 5 mg tablet 5 mg PO DAILY #90 tabs 03/09/25 07/14/25 Rx atorvastatin 20 mg tablet 20 mg PO DAILY 90 days #90 tabs 03/09/25 07/14/25 Rx levothyroxine 150 mcg tablet 150 mcg PO DAILY 90 days #90 tabs 07/14/25 Rx omeprazole 40 mg capsule,delayed 40 mg PO DAILY #90 caps 03/09/25 5 Rx release [facility] Medical History Chest congestion Cough Bronchitis Preventative health care Flu vaccine need Fatty liver Localized skin mass, lump, or swelling URI (upper respiratory infection) Abdominal pain Alcohol use High cholesterol Restless legs Migraine headache Gastric reflux Chewing tobacco use History of echocardiogram Hypertension Health care maintenance Colon cancer screening COVID-19 Lab test negative for COVID-19 virus H/O tinnitus Arleth's disease GERD (gastroesophageal reflux disease) Kidney stone Hearing problem Generalized headaches Bone fracture Back problem Arthritis Shoulder pain Thyroid disease Surgical History History of appendectomy Family History Grandfather Alcoholism Angina at rest Grandmother Breast cancer Father High cholesterol Thyroid disorder Myocardial infarction Social History Smoking Status: Current every day smoker tobacco type: smokeless tobacco Tobacco: How many years used: 20 Smokeless tobacco user: chewing tobacco alcohol intake: current alcohol intake frequency: holidays/special occasions only substance use type: does not use what type of physical activity do you participate in: walking frequency: 1-2 times per week duration: 30-45 minutes/day HPI HPI HPI: The patient is a 54-year-old male presenting to discuss multiple hernias identified during evaluation for right lower quadrant pain. He is referred from Dr. Hawkins. He is known to me from prior colonoscopy and also his is a past patient. The patient reports that his symptoms began in April when he felt something pop while working in his garden. Since then, he has experienced intermittent discomfort in the right lower quadrant. 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 He denies pain with lifting but notes a pinching sensation when bending over. The discomfort does not inhibit his daily activities. He denies any noticeable growth of the hernias since April. He also reports longstanding testicular pain and was previously told he has small varicose veins in the testicles based on ultrasound findings. He reports some discomfort in the left testicle as well. He denies changes in bowel or urinary habits. He is drinking more fluids due to a recently identified 5 mm kidney stone, which he describes as miserable based on prior experiences. He has a urology appointment tomorrow with the [place] for a second opinion on the kidney stone. His surgical history is significant for laparoscopic appendectomy. He denies any prior hernia repairs, skin infections, or smoking history. CT scan dated 06/10/2025 showed tiny bilateral fat-containing inguinal hernias. No incarceration or obstruction. No acute process of the abdomen pelvis. Severe hepatic steatosis with areas of geographic fat sparing. Nonobstructing stone in the left kidney measuring 5 mm. Fat-containing umbilical hernia. ROS General General: No weight change, appetite, fatigue, colon cancer, breast cancer or weakness HEENT HEENT: No difficulty swallowing, eye injury, eye surgery, swollen glands or hoarseness Endo Endocrine: Yes thyroid disease; No diabetes mellitus, thyroid cancer, Hair loss, heat intolerance or cold intolerance Skin Skin: No rash or changing moles Musc Musculoskeletal: No back problems, arthritis, rheumatoid arthritis, gout or joint pain Cardio Cardiovascular: Yes high blood pressure; No murmur, pacemaker, heart disease, atrial fibrillation, heart attack, heart stent, palpitations, shortness of breath with exertion or chest pain Psych Psychiatric: No depression, anxiety or hearing voices Resp Respiratory: No shortness of breath, No sleep apnea, No cough, No COPD, No asthma, No emphysema and No wheezing Gastro Gastrointestinal: No abdominal pain, No nausea or vomiting, No diarrhea, No constipation, No blood in stool, Yes acid reflux, No hemorrhoids, No ulcers, No gallbladder problem and No black,tarry stools Frank Hematologic: No blood thinners, No blood disorders, No bleeding, No anemia and No blood clots Neuro Neurologic: No system reviewed and no additional complaints, except as documented, No as per HPI, No abnormal gait, No abnormal hearing, No abnormal movements, No abnormal speech, No behavioral changes, No burning sensations, No confusion, No convulsions, No disequilibrium, No dizziness, No localized weakness, No frequent falls, No headache(s), No lack of coordination, No loss of vision, No memory loss, No numbness, No other visual disturbances, No radicular pain, No restless legs, No sensory deficit, No syncope, No tingling, No trem or(s), No weakness and No other ROS Narrative has kidney stone Exam Const General: cooperative, comfortable and no acute distress Orientation: alert, awake and oriented x3 Resp Effort & Inspection: normal respiratory effort GI Other: Normal habitus, readily visible umbilical hernia containing fat that is reducible with tenderness upon traction application. Abdomen is otherwise nondistended, soft, nontender palpation x 4 quadrants. Other: Bilateral testicles present, pain with exam bilaterally. No definite hernia palpable on the left. Suggestion of indirect on the right. Assessment and Plan Assessment and Plan (1) Inguinal hernia: Status: Acute Comment: - Bilateral inguinal hernias (right direct, left indirect) and umbilical hernia (2 cm) noted on CT scan. - Right inguinal hernia symptomatic with intermittent discomfort; umbilical hernia at risk for bowel incarceration given size. Discussed that left hernia may actually represent a cord lipoma. - Discussed surgical options: repair of symptomatic right inguinal and umbilical hernias, with possible repair of left inguinal hernia if intraoperative findings confirm true hernia. - Plan for minimally invasive robotic repair of right inguinal and umbilical hernias; will repair left inguinal hernia if indicated intraoperatively. - Discussed risks (mesh discomfort, nerve pain, infection, recurrence) and benefits (reduced risk of incarceration, single recovery period); patient expressed understanding and agreement. - Advised 5-week recovery with no lifting >10 lbs; encouraged ambulation, but avoid stooping, bending, or heavy equipment operation. - Advised 2 weeks off work, then light duties only; avoid long drives (>1 hour) without frequent walking breaks for first 2 weeks post-op. - Nasal swab for staph colonization to reduce infection risk; if positive, will treat with mupirocin ointment and chlorhexidine wash for 5 days pre-op. - Surgery scheduling to follow. Plan: Robotic right possible bilateral inguinal hernia repair with mesh. Concurrent umbilical hernia repair via a double dock approach. Outpatient disposition anticipated. Follow-up MRSA swab of nares. (2) RLQ abdominal pain: Status: Acute (3) Umbilical hernia without obstruction and without gangrene: Status: Acute Orders: Orders MRSA/SAID SCREEN (PRE SURG) Today K40.90 - Unilateral inguinal hernia, without obstruction or gangrene, not specified as recurrent Plan Note was completed with the assistance of AI technology and ambient listening. Patient provided their consent for use of this technology during the duration of their visit. Provider has reviewed dictation prior to incorporation within the electronic medical record. I have examined the patient and the H&P has been reviewed. There are no clinical changes since date of exam. Questions were answered from patient and his spouse to their satisfaction?particularly related to postoperative activity. I then clarified that patient remained committed to the stance that we would only proceed with operating on the left side if it was clear from the peritoneal surface that he indeed has a hernia in that location as he remains relatively asymptomatic. He did provide his agreement. Consents were confirmed. Will now proceed to the operating room for robot-assisted right possible bilateral inguinal hernia repair with mesh as well as concurrent umbilical hernia repair with mesh.
[2025-07-22] MEDS: Lidocaine 1% (5 ml sdv) 5 ML Vial IV (10:58)
[2025-07-22] MEDS: Midazolam 2 MG/2 ML Syringe IV (10:58)
[2025-07-22] MEDS: dexMEDEtomidine 200 MCG/2 ML ML 40 MCG IV (11:20)
[2025-07-22] MEDS: 0.9% Normal Saline (Pres. free 10 ML Vial (12:00)
[2025-07-22] MEDS: BUPIVACAINE LIPOSOME/PF 20 ML VIAL OPERA.SITE (12:00)
[2025-07-22] MEDS: Lactated Ringers 2,000 ML 2000 ML IV (12:58)
[2025-07-22] MEDS: Cefazolin 1 GM/5 ML Vial 4 GM IV (14:48)
[2025-07-22] MEDS: fentaNYL 100 MCG/2 ML Ampul 400 MCG IV (15:20)
--- NOTE | 2025-07-22 15:24 | OP.PCM_ITS ---
Operative Report (Standard) Operative Information Date of Procedure: 07/22/25 Pre-Operative Diagnosis: 1. Right inguinal hernia 2. Umbilical hernia Post-Operative Diagnosis: 1. Right indirect inguinal hernia 2. Fat incarcerated umbilical hernia Surgery/Procedure Performed: Robot-assisted transabdominal preperitoneal repair of right inguinal hernia followed by umbilical hernia both with mesh stranding machine operator: Yes Trimmer Operator: Urbano Lopez Tasks completed by architectural administrative assistant: Opening & closing and Other (Instrument insertion) Additional preschool teacher's assistant?: Yes Additional Recruiting Associate #2: Debbie Alcantar Tasks completed by preschool teacher's assistant #2: Other (Instrument and material exchange) Type of Anesthesia: General/Supplemental (90 mL tap block) RN Documented Start/Stop Times: Operation Date: 07/22/25 10:30 Case Time Into Pre-Op 07/22/25 09:02 Out of Pre-Op 07/22/25 10:54 Anesthesia Start 07/22/25 10:58 Into Room 07/22/25 10:58 Procedure Start 07/22/25 11:36 Procedure End 07/22/25 15:33 Into Recovery 07/22/25 15:44 Anesthesia End 07/22/25 15:45 Out of Room 07/22/25 15:45 Into Phase II Recovery 07/22/25 17:05 Out of Recovery 07/22/25 17:05 Out of Phase II 07/22/25 18:00 Procedure Start Time: 11:36 Procedure Stop Time: 15:33 Select all DRAINS/GRAFTS/IMPLANTS that apply: None and Implanted device (3D max mid anatomic mesh and ProGrip ) Implanted device details: 3D max ref [id number], Lot [id number], Progrip ref [id number], LOT [id number] Estimated Blood Loss: 10 Specimen collected: Yes Description of specimen(s) removed: Right cord lipoma Description of surgery: After appropriate identification in the preoperative holding area the patient was brought to the operating room where he was positioned supine on the operati ng table. Preoperative antibiotics were completed and the patient was administered a general anesthetic. Patient's abdomen was then prepped and draped in usual sterile fashion. Formal timeout followed to confirm patient and procedure. Procedure was begun with an optical entry facilitated by Veress insufflation at Hicks's point. Once pneumoperitoneum reached a set point pressure of 15 mmHg the Veress needle was withdrawn and an optical entry was made with a robotic trocar through that incision site. Laparoscopic visualization confirmed no inadvertent injury to the viscera below and 2 add itional ports were placed in the right upper quadrant and paramedian positions, respectively, after instillation of local anesthetic. I then proceeded with placement of another 2 ports laterally in preparation for patient's umbilical hernia repair. With laparoscopic inspection I could visualize a right sided indirect abdominal wall defect but no such peritoneal impression was present on the left. Patient was positioned in slight Trendelenburg and I performed a local block of the right ilioinguinal nerve using 5 mL local anesthetic under laparoscopic visualization. A transversus abdominis plane block was also created with instillation of 60mL combination of exparel, bupivicaine and injectable saline under laparoscopic vision after these ports were placed. The robot was then brought in and docked in standard fashion. Robotically, a peritoneal flap was created on the right extending from the medial umbilical ligament to the level of the ASIS (external) and was bluntly dissected inferiorly to expose the medial parietal compartment and lateral visceral compartments. Medially I could visualize the pubic tubercle and Mahesh's ligament while laterally I extended the dissection down to the level of the psoas musculature. The indirect hernia sac was identified and from the cord structures deeply with selective use of monopolar energy. A small cord lipoma was identified and removed with monopolar energy. Beyond this, I visualized a fatty cord Not wanting to incur bleeding or damage to the cord structures the fatty cord was left undisturbed, however, to prevent risk for the cord lipoma returning to the inguinal canal it was amputated safely and passed out of the peritoneal cavity for pathologic submission. The peritoneal flap was inspected to ensure that cord was appropriately parietalized and there was no pulling of the cord structures or the viscera deeply over the psoas using the pull test. Once satisfied, a Bard 3D max, size large, mid weight mesh was placed into the abdomen along with suture. It was positioned within the preperitoneal pocket so that there was good medial and inferior overlap. It was then tacked to Mahesh's ligament as well as the adminiculum of the linea alba just superior to the pubic tubercle, medially, and laterally in a partial- thickness bite of the abdominal wall using a 3-0 Vicryl suture. The peritoneal flap was then closed with a running 3-0 V-Loc suture taking care to conceal the barbs of the suture beneath the peritoneum. Once the flap closure was complete, I undertook repair of two small peritoneal defects inferiorly with 3-0 Vicryl. With the peritoneal defects closed, the robot was undocked, reoriented to the patient and redocked laterally in preparation to address the umbilical hernia. Robotically a peritoneal flap was raised approximately 2 cm medial from my trocars and carried this away towards the contralateral abdominal wall. Great care was taken to lower the peritoneum off of the posterior rectus sheath and avoid any rents in the peritoneal flap. Perforating vessels were sealed with bipolar energy to maintain hemostasis as this flap dissection proceeded. I then addressed the hernia directly by opening the scar tissue about the hernia sac and carefully applying manual traction downward until the hernia was fully reduced. The flap was then further dissected laterally until it appeared we had adequate width. The appropriateness of dissection was confirmed through measuring using an introduced ruler aiming to accommodate mesh for 5cm overlap. Then, the hernia defect, measuring 1.5cm in diameter, was closed with a #1 stratafix suture by running the fascial defect closed and then running the suture back upon itself. Next a 10 X 10cm Progrip mesh was introduced with 3-0 V loc and Vicryl suture into the peritoneum. The mesh was unfolded and pressed into place- nicely fitting into the preperitoneal pocket just created. It was tacked against the posterior rectus sheath in 4 quadrants. Lastly the peritoneum was closed with 3-0 V-Loc suture. Satisfied with the final appearance, needles, a ruler, and inserted Ray-Cassidy were all removed under laparoscopic visualization and case counts were confirmed. The robot was then undocked and the trocars were removed. Additional local anesthetic was instilled and the port sites were closed with interrupted 4-0 Monocryl in subcuticular fashion. Steri-Strips and OpSite dressings were applied. Patient was transferred to PACU for ongoing care. Surgical Findings: - indirect inguinal on right - no obvious defect on left - fat-incarcerated umbilical hernia with 1.5cm fascial defect Complications Complications: No Admit VTE Documentation VTE Mechan Device Prophylaxis: SCD's
--- NOTE | 2025-07-22 15:30 | DCINST_ITS ---
Discharge Instructions Diet Discharge Diet: No restrictions Activity Discharge Activity: May Not Drive (While taking narcotic pain medication) and May Shower May shower in (days): 2 Ice area for (Minutes): 20 Lifting Restrictions: No lifting greater than 10 pounds for the next 5 weeks Dressing / Incision Call your doctor if your incision/area has: Continuous Slow Oozing, Increased Pain/ Swelling, Increased Redness, Foul Smelling Discharge and Swelling at the incision site Call your doctor if you observe: Fever of 101 or Higher, Inability to urinate and Inability to have a bowel movement Change Dressing in: 2 days (Please leave Steri-Strips intact until they fall off spontaneously or are taken off at your follow-up visit) Remove Dressing in: 2 days Cleanse incision/area with: Soap & Water and Keep Dressing Clean & Dry Follow Up Care Please Follow Up With: Xu Blair MD When: 10-14 days postop Test Results: Test results from this visit will be discussed in further detail at your follow- up appointment, if applicable. Discharge Plan Admission Primary Reason for Your Visit: Inguinal umbilical hernia repairs Attending Provider: Xu Blair Primary Care Provider: Paul Hawkins Instructions Print Language: Ivorian Discharge Orders/Prescriptions Prescriptions: New oxycodone 5 mg tablet 5 mg PO Q6H PRN (Reason: pain) 3 Days Qty: 10 0RF Continued levothyroxine 150 mcg tablet 150 mcg PO DAILY 90 Days Qty: 90 1RF amlodipine 5 mg tablet 5 mg PO DAILY Qty: 90 1RF atorvastatin 20 mg tablet 20 mg PO DAILY 90 Days Qty: 90 1RF omeprazole 40 mg capsule,delayed release(DR/EC) 40 mg PO DAILY Qty: 90 1RF Other Ambulatory Orders: 12 Lead EKG (Routine) Location: None Selected Ordered By: Dr. Tommie Hutson Referrals / Follow Up: Paul Hawkins MD [Primary Care Provider, Internal Medicine] Disposition Disposition (needs filled in before D/C Order can be placed): Home, Self Care
--- NOTE | 2025-07-22 15:46 | PCM.POST.ANE ---
Anesthesia: Postop Eval I Current Vital Signs Temperature: 97.2 F Pulse Rate: 98 Blood Pressure: 122/69 Respiratory Rate: 20 Pulse Ox: 94 Assessment Airway patent: Yes Spontaneous unlabored respirations: Yes nausea: No Vomiting: No Anesthesia Complication: No Fluid Hydration Crystalloid volume administer (ml): 2,000 Total IV fluid infused: 2,000 Progress Note Anesthesia document: Postop Eval 1 completed: Yes
--- NOTE | 2025-07-22 15:54 | POSTOPAN2_ITS ---
Anesthesia Postop Eval I Sum Postop Eval Completion status Anesthesia document: Postop Eval 1 completed: Yes Anesthesia Postop Eval I Summary Anesthesia Postop Eval I Summary: Anesthesia Postop Eval I: Assessment Summary Airway patent Yes 07/22/25 15:51 FIELD [email or web address] Spontaneous unlabored Yes 07/22/25 15:51 FIELD [email or web address].CSIR respirations Mental status nausea No 07/22/25 15:51 FIELD SPEC.CSIR Vomiting No 07/22/25 15:51 FIELD [email or web address].CSIR Anesthesia Postop Eval I: Fluid Summary Crystalloid volume administer 2,000 07/22/25 15:51 FIELD SPEC.CSIR (ml) Colloids volume administered ( ml) Blood Product volume administered (ml) Total IV fluid infused 2,000 07/22/25 15:51 FIELD [email or web address].CSIR Anesthesia Postop Eval I: Summary Notes Anesthesia Complication No 07/22/25 15:51 FIELD [email or web address].CSIR Anesthesia Complication Comment: Post-operative progress note Anesthesia: Postop Eval II Evaluation Mental status: Awake Pain Level: 0 nausea: No Vomiting: No
--- NOTE | 2025-07-22 15:54 | PCM.POSTANE2 ---
Anesthesia Postop Eval I Sum Postop Eval Completion status Anesthesia document: Postop Eval 1 completed: Yes Anesthesia Postop Eval I Summary Anesthesia Postop Eval I Summary: Anesthesia Postop Eval I: Assessment Summary Airway patent Yes 07/22/25 15:51 WARDROBE [email or web address] Spontaneous unlabored Yes 07/22/25 15:51 WARDROBE [email or web address] respirations Mental status nausea No 07/22/25 15:51 WARDROBE TECHNICIAN.CSIR Vomiting No 07/22/25 15:51 WARDROBE [email or web address] Anesthesia Postop Eval I: Fluid Summary Crystalloid volume administer 2,000 07/22/25 15:51 WARDROBE TECHNICIAN.CSIR (ml) Colloids volume administered ( ml) Blood Product volume administered (ml) Total IV fluid infused 2,000 07/22/25 15:51 WARDROBE TECHNICIAN.CSIR Anesthesia Postop Eval I: Summary Notes Anesthesia Complication No 07/22/25 15:51 WARDROBE TECHNICIAN.CSIR Anesthesia Complication Comment: Post-operative progress note Anesthesia: Postop Eval II Evaluation Mental status: Awake Pain Level: 0 nausea: No Vomiting: No
== END 2025-07-22 18:00 | disposition home or self-care (01) ==
LOC: SDC 08:54 → AC 08:55
PROVIDERS: Anesthesiology; PCP Internal Medicine; Referring Provider Surgery; Visit Provider Surgery
PROC: (CPT 49650; principal; 2025-07-22 10:10)
DX: K40.90 Unilateral inguinal hernia, without obstruction or gangrene, not specified as recurrent (principal); Z79.899 Other long term (current) drug therapy; D17.1 Benign lipomatous neoplasm of skin and subcutaneous tissue of trunk; K21.9 Gastro-esophageal reflux disease without esophagitis; E78.00 Pure hypercholesterolemia, unspecified; I10 Essential (primary) hypertension; F17.220 Nicotine dependence, chewing tobacco, uncomplicated; K42.0 Umbilical hernia with obstruction, without gangrene
CPT/HCPCS: 49650; S2900; 00840; 36415; 84443; 87081; 88304; 93005; C1781; A4216; J0666; J2405